=== PATIENT | male | born 1995 | race Caucasian/White ===

== ENCOUNTER 2025-04-21 23:12 | Emergency (ER) | payer OTHER, SELFPAY ==
[2025-04-21 23:13] VITALS: BP 148/88; PULSE 82; RESP 16; TEMP 36.6; O2SAT 100; BMI 20.6
--- NOTE | 2025-04-21 23:35 | EKG12_ITS ---
Test Reason : CP Blood Pressure : */* mmHG Vent. Rate : 85 BPM Atrial Rate : 85 BPM P-R Int : 148 ms QRS Dur : 106 ms QT Int : 364 ms P-R-T Axes : 52 -2 39 degrees QTcB Int : 433 ms Normal sinus rhythm Possible Left atrial enlargement Incomplete right bundle branch block Borderline ECG Confirmed by ADRI FLORES, QUINTEN ([id number]), publishing editor BRENNON BENJAMIN ([id number]) on 04/22/2025 1:03:56 PM Referred By: BB Confirmed By: QUINTEN RUSH MD
--- NOTE | 2025-04-21 23:36 | EDS_ITS ---
HPI History of Present Illness Chief Complaint: Chest Pain Informant: patient and parent Narrative Narrative: Healthy 29-year-old [employer] male brought by his dad for left-sided chest discomfort. He states it has been intermittent for the past week but for the past 2 days it has been more constant and more severe. It is still on the left side. Its mostly dull, but if he lies down the pain is significantly worse and sharp to the point where he cannot lay down. If he bends over he makes it worse as well. He has had some shortness of breath at times. No leg pain or swelling. No syncope or near syncope. No palpitations or diaphoresis or radiation of the pain into the arm, neck, jaw. PFSH PFSH Medical History no medical history no medical history Home Medications ?Medication ?Instructions ?Recorded ?Last Taken ?Type NK 04/21/25 Unknown History Allergy/AdvReac Type Severity Reaction Status Date / Time No Known Allergies Allergy Verified 04/21/25 23:13 Family History other other (hypertrophic and restrictive cardiomyopathies in fam members) Surgical History no surgical history Social History Smoking Status: Never smoker alcohol intake: never ROS ROS ED Constitutional Constitutional ED: Denies chills or fever(s) Eyes Eyes: Denies change in vision or diplopia ENT ENT ED: Denies rhinorrhea or sore throat Cardiovascular Cardiovascular: Reports as per HPI and chest pain; Denies leg edema, orthopnea, palpitations or syncope Respiratory/Chest Respiratory/Chest: Reports dyspnea; Denies cough or orthopnea Gastrointestinal Gastrointestinal: Denies abdominal pain, diarrhea, nausea or vomiting Genitourinary Genitourinary ED: Denies dysuria or hematuria Musculoskeletal Musculoskeletal: Denies back pain or neck pain Integumentary Denies abscess or rash Neurologic Neurologic: Denies headache(s), paresthesias or weakness Psychiatric Psychiatric: Denies anxiety or suicidal thoughts EXAM Physical Exam Const Vital Signs: 04/21/25 23:13 04/21/25 23:19 04/21/25 23:41 Temperature 98 F Temperature Source Oral Pulse Rate 82 Respiratory Rate 16 Respiratory Effort Normal Non-Labored Blood Pressure 148/88 H Blood Pressure Mean 108 Pulse Ox 100 Oxygen Delivery Method Room Air Room Air 04/22/25 00:13 04/22/25 01:00 04/22/25 02:00 Temperature Temperature Source Pulse Rate 80 58 L 52 L Respiratory Rate 18 16 11 L Respiratory Effort Blood Pressure 126/73 H 121/74 H 116/68 Blood Pressure Mean 90 89 84 Pulse Ox 98 98 98 Oxygen Delivery Method Room Air Room Air Room Air 04/22/25 02:08 Temperature 98 F Temperature Source Pulse Rate 53 L Respiratory Rate 10 L Respiratory Effort Blood Pressure 116/68 Blood Pressure Mean 84 Pulse Ox 97 Oxygen Delivery Method Positive well nourished and well developed General Appearance ED: well developed and NAD HEENT Reports moist mucous membranes normocephalic and atraumatic Eyes PERRL and EOMs intact bilaterally Neck full ROM, supple and no JVD Chest Wall inspection of chest normal and palpation of chest normal Chest: Negative for tenderness Resp normal respiratory effort and clear to auscultation bilaterally Cardio regular rate, regular rhythm and no murmurs Rate: Negative for tachycardic Peripheral Pulses: pulses 2+ throughout GI non-tender and non-distended Auscultation: normoactive bowel sounds Palpation: soft Back/Spine no CVA tenderness General Back: other FROM Extremity normal to inspection Extremity Narrative: No calf tenderness bilaterally General Extremety ED: Negative for edema, pulses abnormal or tenderness General Extremity: Negative for edema or pulses abnormal Neuro oriented x3, CN's II-XII intact bilaterally and no sensory deficits noted Sensorium / Orientation: awake and alert Motor Exam: strength 5/5 throughout Skin no rashes or lesions noted and no wounds MDM MDM MDM Narrative Medical decision making narrative: Broad differential here, and acute vascular event such as unstable angina/ACS unlikely given his age and health, but pericarditis, myocarditis in the differential as his pneumothorax, less likely pneumonia given no cough, PE although he has no specific risk factors or signs or symptoms of a DVT, pleurisy, esophageal etiology is all in the differential. His EKG shows an RSR prime but is otherwise unremarkable. Father was concerned he has a family history of cardiomyopathies, I do not see any evidence or suspicion for LVH on the EKG, nor are there ST segment deflections or signs of acute injury or EKG signs of pericarditis at this time. Chest x-ray 2 views of my interpretation normal, showing no pneumonia or pneumothorax or signs of pulmonary edema. His blood work including troponin and proBNP all returned normal. His D-dimer is normal as well ruling out PE here. Under the circumstances my suspicion is that this could be pleurisy versus esophageal etiologies. We gave him some Toradol while we were performing the workup. He said it helped afterwards. At this time I am going to recommend he take ibuprofen as needed and follow-up with his doctor as an outpatient they are comfortable with that plan. Lab Data Attestation: I reviewed the patient's lab results. Labs: Laboratory Results - last 24 hr 04/21/25 04/22/25 23:20 01:21 WBC 6.1 RBC 4.89 Hgb 15.0 Hct 43.1 MCV 88.1 MCH 30.7 MCHC 34.8 RDW Std Deviation 38.5 RDW Coeff of Minesh 11.9 Plt Count 195 MPV 9.5 Immature Gran % (Auto) 0.200 Neut % (Auto) 46.4 L Lymph % (Auto) 42.3 H [place] % (Auto) 7.5 Eos % (Auto) 2.6 Baso % (Auto) 1.0 Absolute Neuts (auto) 2.9 Absolute Lymphs (auto) 2.59 Nucleated RBC % 0 D-Dimer Quant (PE/DVT) < 0.27 L Sodium 139 Potassium 3.6 Chloride 102 Carbon Dioxide 23.3 Anion Gap 14 BUN 18 Creatinine 0.98 Estim Creat Clear Calc 94.76 Est GFR (MDRD) Non-Af 108 BUN/Creatinine Ratio 18.7 Glucose 95 Calcium 9.7 Troponin T High Sens < 6 Troponin T Hi Sens 2 Hr < 6 NT pro BNP II < 36 Radiography Diagnostic Testing: Clinical Impression(s) from Imaging Studies Chest X-Ray 04/21/25 23:46 IMPRESSION: No acute chest findings. Reading Location: [place] [id number] Rhythm Strip Rhythm Strip: Sinus Rhythm Rate: 92 Ectopy: None EKG Initial EKG: Attestation: I personally reviewed and interpreted this EKG as follows: Interpretation: Sinus Rhythm and No Acute Injury Pattern Comments: RSR' V1-2. Normal axis and intervals. Otherwise normal EKG. Prior EKG tracings: not available for review Prior: No Prior Discharge Plan Triage Chief Complaint: Chest Pain ED Provider: Blade Elise Dx/Rx/DC Orders Clinical Impression: Pleurisy Instructions: ED Pleurisy Prescriptions: No Action NK Primary Care Provider: Evangelista Silva Referrals: Evangelista Silva, [Primary Care Provider] - 3-5 Days if not improving Print Language: Persian Disposition Disposition: Home, Self Care
--- OUTSIDE RECORDS SUMMARY | 2025-04-21 23:42 | XMS RPT_ITS | CCD ---
Author Organization [facility] Care Team Providers Care Desulphurizer Operator Name Role Phone Unavailable Unavailable Evangelista Silva Unavailable Dr. Kamari Ortega Referring Katina vailable Evangelista Silva Primary Care Unavailable Robert, Dr. Kamari Pierson Admitting Katina vailable Robert, Dr. Kamari Pierson Attending Katina vailable Evangelista Silva Primary Care Unavailable Carmen, Dr. Lali Lee Attending Unava ilable Evangelista Silva Primary Care Unavailable Carmen, Dr. Lali Lee Attending Unava ilable Robert, Dr. Kamari Pierson Referring Katina vailable Evangelista Silva Primary Care Unavailable Robert, Dr. Kamari Pierson Attending Katina vailable Carmen Barton MD, Lali Unavailable [phone] KAMARI ORTEGA Attending Unavailable Blade Elise Attending Unavailable Evagnelista Silva Primary Care Unavailable Allergies Allergy Classification Reported Allergen(s) Allergy Type Date of Onset Reaction(s) Facility (10 sources) bee pollen Allergy to substance (finding) [facility] [address] Work Phone: (10 sources) house dust Allergy to substance (finding) [facility] [address] Work Phone: (2 sources) Aspirin; Translations: [ASPIRIN] Drug Allergy 2 Bleeding [facility] (2 sources) Bee pollen; Translations: [BEE POLLEN] Drug Allergy 5 Itching [facility] Work Phone: (2 sources) house dust allergenic extract; Translations: [HOUSE DUST] Drug Allergy 5 Itching [facility] Work Phone: (2 sources) Ibuprofen; Translations: [IBUPROFEN] Drug Allergy 6 Other [facility] Work Phone: (2 sources) Non-steroidal anti-inflammator y agent; Translations: [NSAIDS (NON-STEROIDAL ANTI-INFLAMMATOR Y DRUG)] Drug Intolerance 2 Bleeding [facility] Work Phone: Medications Current Medications Medication Drug Class(es) Dates Sig (Normalized) Sig (Original) acetaminophen 325 mg oral tablet (1 source) Start: 06-12-2022 take 1 tablet by mouth every eight hours acetaminophen (Tylenol) 325 mg tablet Take 1 tablet (325 mg) by mouth every 8 hours. 06/12/2022 Active Docosahexaenoate (1 source) take 3 capsules by mouth once daily DOCOSAHEXAENOIC ACID ORAL Take 3 capsules by mouth once daily. Active nonacog marco 1 unt injection (1 source) Human Blood Coagulation Factor coagulation factor IX, recomb, (BeneFIX) 3,000 unit injection Indications: hemophilia B Infuse 100 Units/kg into a venous catheter if needed (Every 12-24 hours as needed to treat or prevent bleeding). Benefix 6000 units +/- 10% slow IV push as needed every 12-24 hours to treat or prevent bleeds. Received through [employer] hemophilia [facility]. 3 doses refill x 6 Active Completed/Discontinued Medications Medication Drug Class(es) Dates Sig (Normalized) Sig (Original) No Reported Medications (9 sources) No Reported Medi cations Quantity: 0 Refills: 0 Ordered: 12-May-2022 DO Active Problems Active Problems Problem Classification Problem Date Documented Da te Episodic/Chronic Cancer; other and unspecified primary (2 sources) History of pleomorphic adenoma of salivary gland; Translations: [Personal history of other benign neoplasm] Onset: 10-21-2024 10-08-2024 Episodic Coagulation and hemorrhagic disorders (4 sources) Hereditary factor VIII deficiency; 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] Onset: 06-12-2022 10-08-2024 Chronic Other skin disorders (10 sources) Mass of neck; Translations: [Swelling, mass, or lump in head and neck] Episodic Other skin disorders (2 sources) Localized swelling of head; Translations: [Localized swelling, mass and lump, head] Onset: 10-21-2024 10-08-2024 Episodic Past or Other Problems Problem Classification Problem Date Documented Da te Episodic/Chronic Diseases of mouth; excluding dental (11 sources) Mass of parotid gland; Translations: [Other specified diseases of the salivary glands] Onset: 06-11-2022 Episodic Other and unspecified benign neoplasm (2 sources) Benign neoplasm of parotid gland; Translations: [Benign neoplasm of parotid gland] Onset: 06-12-2022 Episodic Results Test Name Value Interpretation Reference Range Facility Established Visit (Otolaryng ology)on 06-21-2022 Established Visit (Otolaryngology) Diagnoses/Problems Non-smoker (V49.89) (Z78.9) Parotid mass (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 SADIE OSMAN, is a 26 yr old male here for first postop s/p right parotidectomy for pleomorphic adenoma. Path pending. 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 He is doing well. He will follow up with me in 2-3 weeks. Reassurance provided. Education provided regarding incision care including massage, moisturization and Vit E as well as the need for aggressive sunblock/sun protection for the first year. Chief Complaint post op visit History of Present IllnessMrJuan José OSMAN, is a 26 year old male here for his first postop s/p right parotidectomy 06/11/22. Discharged 06/12/22. Called 06/14/22 when a stitch came out and he had some bleeding. This stopped after factor and he did not require hospitalization. He has done well. Here alone today. He is doing well. He is getting bored at home. Path remains pending. History: Dx: Right parotid pleomorphic adenoma Dx2: Hemophilia Long standing history several yrs of right parotid mass, previous FNA benign (no records available) 05/12/22: CT neck w/contrast +heterogeneous ill-defined mass in the right parotid which is 3.5cm in size. 05/19/22: FNA Rt parotid +pleomorphic adenoma 06/11/22: S/p Right parotidectomy PShx: He had impacted tooth removed as a child and nasal bone fx in the past. 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 No acute distress. Communication: Normal communication, normal voice quality. No hoarseness, stridor or stertor. Psychiatric: Oriented to person, place and time. Normal mood and affect. Neurologic: Cranial nerves II-XII grossly intact and symmetric bilaterally - Right FN intact except for mild right marginal mandibular nerve weakness Head and Face: Head: Atraumatic with no masses, lesions or scarring. Face/Salivary glands: S/p right parotidectomy TMJ: Normal, no trismus. Eyes: Conjunctiva not edematous or erythematous, +nystagmus Ears: External inspection of ears with no deformity, scars or masses. Nose: External inspection of nose: No nasal lesions, lacerations or scars Oral Cavity/Mouth MMM Neck: Parotid incision C/D/I, steristrips removed and cleaned. No bleeding Cardiovascular: Examination of peripheral vascular system shows no clubbing or cyanosis. Respiratory: No respiratory distress increased work of breathing. Inspection of the chest with symmetric chest expansion and normal respiratory effort. Skin: +sunburn, very pale skin Results/Data Path pending 'Scores and Scales' Signatures Electronically signed by : Kamari Ortega MD; Jun 26 2022 10:14AM EST (Author) Normal Touchworks CBCon 06-13-2022 HCT Canceled Normal [facility] Comment on above: Order Comment: TEST CBC WAS CANCELLED, 06/13/2022 00:52 Performed By: #### C BC ####[id number] [place] [address] HGB Canceled Normal [facility] Comment on above: Order Comment: TEST CBC WAS CANCELLED, 06/13/2022 00:52 Performed By: #### C BC ####[id number] [place] [address] MCHC Canceled Normal [facility] Comment on above: Order Comment: TEST CBC WAS CANCELLED, 06/13/2022 00:52 Performed By: #### C BC ####[id number] [place] [address] MCV Canceled Normal [facility] Comment on above: Order Comment: TEST CBC WAS CANCELLED, 06/13/2022 00:52 Performed By: #### C BC ####[id number] [place] [address] NUCLEATED RBC Canceled Normal [facility] Comment on above: Order Comment: TEST CBC WAS CANCELLED, 06/13/2022 00:52 Performed By: #### C BC ####[id number] [place] [address] PLT Canceled Normal [facility] Comment on above: Order Comment: TEST CBC WAS CANCELLED, 06/13/2022 00:52 Performed By: #### C BC ####[id number] [place] [address] RBC Canceled Normal [facility] Comment on above: Order Comment: TEST CBC WAS CANCELLED, 06/13/2022 00:52 Performed By: #### C BC ####[id number] [place] [address] RDW-CV Canceled Normal [facility] Comment on above: Order Comment: TEST CBC WAS CANCELLED, 06/13/2022 00:52 Performed By: #### C BC ####[id number] [place] [address] WBC Canceled Normal [facility] Comment on above: Order Comment: TEST CBC WAS CANCELLED, 06/13/2022 00:52 Performed By: #### C BC ####[id number] [place] [address] CBCon 06-12-2022 HCT Canceled Normal [facility] Comment on above: Order Comment: TEST CBC WAS CANCELLED, 06/12/2022 20:16 NO SPECIMEN RECEIVED IN LAB. Performed By: #### C BC #### [facility] [address] [place] [address] HGB Canceled Normal [facility] Comment on above: Order Comment: TEST CBC WAS CANCELLED, 06/12/2022 20:16 NO SPECIMEN RECEIVED IN LAB. Performed By: #### C BC #### [facility] [address] [place] [address] MCHC Canceled Normal [facility] Comment on above: Order Comment: TEST CBC WAS CANCELLED, 06/12/2022 20:16 NO SPECIMEN RECEIVED IN LAB. Performed By: #### C BC #### [facility] [address] [place] [address] MCV Canceled Normal [facility] Comment on above: Order Comment: TEST CBC WAS CANCELLED, 06/12/2022 20:16 NO SPECIMEN RECEIVED IN LAB. Performed By: #### C BC #### [facility] [address] [place] [address] NUCLEATED RBC Canceled Normal [facility] Comment on above: Order Comment: TEST CBC WAS CANCELLED, 06/12/2022 20:16 NO SPECIMEN RECEIVED IN LAB. Performed By: #### C BC #### [facility] [address] [place] [address] PLT Canceled Normal [facility] Comment on above: Order Comment: TEST CBC WAS CANCELLED, 06/12/2022 20:16 NO SPECIMEN RECEIVED IN LAB. Performed By: #### C BC #### [facility] [address] [place] [address] RBC Canceled Normal [facility] Comment on above: Order Comment: TEST CBC WAS CANCELLED, 06/12/2022 20:16 NO SPECIMEN RECEIVED IN LAB. Performed By: #### C BC #### [facility] [address] [place] [address] RDW-CV Canceled Normal [facility] Comment on above: Order Comment: TEST CBC WAS CANCELLED, 06/12/2022 20:16 NO SPECIMEN RECEIVED IN LAB. Performed By: #### C BC #### [facility] [address] [place] [address] WBC Canceled Normal [facility] Comment on above: Order Comment: TEST CBC WAS CANCELLED, 06/12/2022 20:16 NO SPECIMEN RECEIVED IN LAB. Performed By: #### C BC #### [facility] [address] [place] [address] Erythrocyte distribution width (RBC) [Ratio] 12.0 % Normal 11.5 - 14.5 [facility] Comment on above: Performed By: #### C BC #### [facility] [address] [place] [address] Hematocrit (Bld) [Volume fraction] 44.6 % Normal 41.0 - 52.0 [facility] Comment on above: Performed By: #### C BC #### [facility] [address] [place] [address] Hemoglobin (Bld) [Mass/Vol] 15.4 g/dL Normal 13.5 - 17.5 [facility] Comment on above: Performed By: #### C BC #### [facility] [address] [place] [address] MCHC (RBC) [Mass/Vol] 34.5 g/dL Normal 32.0 - 36.0 [facility] Comment on above: Performed By: #### C BC #### [facility] [address] [place] [address] MCV (RBC) [Entitic vol] 88 fL Normal 80 - 100 [facility] Comment on above: Performed By: #### C BC #### [facility] [address] [place] [address] NUCLEATED RBC 0.0 /100 WBC Normal 0.0-0.0 [facility] Comment on above: Performed By: #### C BC #### [facility] [address] [place] [address] Platelets (Bld) [#/Vol] 217 10*3/uL Normal 150 - 450 [facility] Comment on above: Performed By: #### C BC #### [facility] [address] [place] [address] RBC 5.06 x10E12/L Normal 4.50 - 5.90 [facility] Comment on above: Performed By: #### C BC #### [facility] [address] [place] [address] WBC (Bld) [#/Vol] 9.0 10*3/uL Normal 4.4 - 11.3 [facility] [place] Comment on above: Performed By: #### C BC #### [facility] [address] 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 Right parotidectomy with facial nerve dissection;2. Intraoperative nerve monitoring Hospital Providers: Provider RoleProvider Name Kamari Desai DNAR: Code Status at Discharge: Full Code Activity: activity with assistance. May shower. 48 hours after surgery. May not return to school/work until follow-up visit with Dr Ortega Instructions: May not drive while taking narcotics. No pushing, pulling, or lifting objects greater than 20 pounds until follow-up visit. Diet: Dietregular Call Provider If (Homegoing Patients): Breathing harder than normal or having retractions. Fever of 100.4 F (38 C) or higher. Chills. Drinking less than normal. Not being able to go 4-6 hours between albuterol treatments. Urinating less than normal, over 1 day. Acting very sleepy and difficult to awaken. Vomiting (throwing up) and not able to eat or drink for 12 hours. 3 or more loose, watery bowel movements in 24 hours (diarrhea). Any new concerning symptoms. Increased swelling at surgical site. Otolaryngology: Incision Care: You have small paper tapes over small surgery incisions. These tapes may get wet in shower, pat dry. The strips may become loose and fall off on their own, any strips that remain will be removed at your follow up visit. Provider FINAL REVIEW of Orders: Final Review: Final Review of Medication Reconciliation and Orders Completedby Physician Reviewing ProviderAlcides Velasquez MD (Resident) at 12-Jun-2022 10:23:12 Appointments: Follow-Up Appointment 01: Physician/Dept/Nori Ortega - ENT Reason for Referralpost op visit Scheduled Date/[id number] 16:00 [facility] [address] [place] [address] Phone [phone] Electronic Signatures: Alcides Velasquez ( (Resident)) (Signed 12-Jun-2022 10:23) Authored: Discharge Orders, Otolaryngology, Provider FINAL REVIEW of Orders, Appointments, Gold Form - Ichthyologist Summary Last Updated: 12-Jun-2022 10:23 by Alcides Velasquez ( (Resident)) Normal [facility] Laboratory - Hematology and Cell countson 06-12-2022 Erythrocyte distribution width (RBC) [Ratio] 12.0 % See Below -Otolaryn ology-Admin [employer] Work Phone: Comment on above: Reference Range: 11. 5 - 14.5 Hematocrit (Bld) [Volume fraction] 44.6 % See Below -[facility] ology-Admin [employer] Work Phone: Comment on above: Reference Range: 41. 0 - 52.0 Hemoglobin (Bld) [Mass/Vol] 15.4 g/dL See Below MG-Otolaryng ology-Admin [place] [address] Work Phone: Comment on above: Reference Range: 13. 5 - 17.5 MCHC (RBC) [Mass/Vol] 34.5 g/dL See Below MG-Otolaryng ologyAdmin [place] [address] Work Phone: Comment on above: Reference Range: 32. 0 - 36.0 MCV (RBC) [Entitic vol] 88 fL 80 - 100 MG-Otolaryng ology-[place] [address] Work Phone: [phone] Platelets (Bld) [#/Vol] 217 10*3/uL 150 - 450 [facility]-Otolaryng ology-[place] [address] Work Phone: [phone] RBC (Bld) [#/Vol] 5.06 {x10E12/L} See Below [place] [address] Work Phone: Comment on above: Reference Range: 4.5 0 - 5.90 WBC (Bld) [#/Vol] 9.0 10*3/uL 4.4 - 11.3 MG-Shar laryng ology-[place] [address] Work Phone: MAGNESIUMon 06-12-2022 Magnesium [Mass/Vol] 1.95 mg/dL Normal 1.60 - 2.40 [facility] Comment on above: Performed By: #### M G ####[id number] [place] [address] Magnesium, Serumon Magnesium [Mass/Vol] 1.95 mg/dL See Below [place] [address] Work Phone: Comment on above: Reference Range: 1.6 0 - 2.40 No Panel Informationon 06-12 0.0 {/100_WBC} 0.0-0.0 MG-Otolary ology-[place] [address] Work Phone: Order Reconciliationon 06-12 Order Reconciliation Page 1 Discharge Reconciliation Document Reconciliation Type: Discharge requested on behalf of Ondina Winkler (Resident) done by Ondina Winkler ( (Resident)) Discharge - Reconciliation: 12-Jun-2022 10:02 by: Ondina Winkler ( (Resident)) Home Medications EnteredHOME MEDICATIONS AT DISCHARGE DateReconciliation Comment/ Additional Information BeneFIX intravenous kit 6500 international unit(s) intravenous prn, As Needed 07-Dec-2021 00:00 BeneFIX intravenous kit 6500 international unit(s) intravenous prn, As Needed 07-Dec-2021 00:00 BeneFIX intravenous kit is continued as BeneFIX intravenous kit Current OrdersDateHOME MEDICATIONS AT DISCHARGE DateReconciliation Comment/ Additional Information Acetaminophen Tablet (TYLENOL)DOSE = 975 mg Oral Every 8 Hours 11-Jun-2022 12:40 acetaminophen 325 mg oral tablet 3 tab(s) orally every 8 hours 12-Jun-2022 10:01 Acetaminophen is continued as acetaminophen 325 mg oral tablet ceFAZolin 1 gram IVPB/ Premixed Soln 50 mL (ANCEF)Every 8 HoursRecommended Infusion Time: 30 minute(s)Stop After 3 DosesClinician Notes: If there is a shortage of Unasyn 11-Jun-2022 12:40 ceFAZolin 1 gram IVPB/ Premixed Soln 50 mL is not required Docusate Capsule (COLACE)DOSE = 100 mg Oral 2 Times a Day 11-Jun-2022 12:40 Docusate is not required Factor IX Recombinant (BENEFIX) IVPB in Sterile Water 0.1 mLDOSE = 6,500 International Unit(s OnceRecommended Infusion Time: 20 minute(s)Stop After 1 DosesClinician Notes: PATIENT'S OWN MED (ok to use patient home medication.TO BE GIVEN AT NO 12-Jun-2022 09:54 Factor IX Recombinant (BENEFIX) IVPB is not required Heparin SubCutaneous DOSE = 5,000 unit(s) SubCutaneous Every 8 HoursNotes from Pharmacy: Note Concentration Prior to Administration 11-Jun-2022 12:40 Heparin SubCutaneous is not required Non-Formulary Medication Benefix (Coagulation Factor IX) InjectableDose = 6500 unit(s) IntraVenous Push OncePATIENTS OWN MEDS 11-Jun-2022 11:48 Non-Formulary Medication is not required Ondansetron Injectable (ZOFRAN)DOSE = 4 mg IntraVenous Push Every 6 Hours, PRN Nausea & Vomiting 11-Jun-2022 12:40 Ondansetron Injectable is not required Sennosides Tablet (SENOKOT)DOSE = 1 tablet(s) PEG Tube Daily 11-Jun-2022 12:40 Sennosides is not required Home Medications Added During Discharge Reconciliation traMADol 50 mg oral tablet 1 tab(s) orally every 6 hours, As Needed , G89.18 postop pain All Active Home Medications at time of Discharge Reconciliation: 12-Jun-2022 10:02 acetaminophen 325 mg oral tablet 3 tab(s) orally every 8 hours BeneFIX intravenous kit 6500 international unit(s) intravenous prn, As Needed traMADol 50 mg oral tablet 1 tab(s) orally every 6 hours, As Needed , G89.18 postop pain Normal [facility] RENAL FUNCTION PANELon 06-12 Albumin [Mass/Vol] 4.1 g/dL Normal 3.4 - 5.0 [facility] [place], [facility] Comment on above: Performed By: #### R ENAL #### [facility] [address] [place] [address] Anion gap [Moles/Vol] 15 mmol/L Normal 10 - 20 [facility] Comment on above: Performed By: #### R ENAL #### [facility] [address] [place] [address] Calcium [Mass/Vol] 9.3 mg/dL Normal 8.6 - 10.6 [facility] [place] Comment on above: Performed By: #### R ENAL #### [facility] [address] [place] [address] Chloride [Moles/Vol] 102 mmol/L Normal 98 - 107 [facility] Comment on above: Performed By: #### R ENAL #### [facility] [address] [place] [address] Creatinine [Mass/Vol] 0.91 mg/dL Normal 0.50 - 1.30 [facility] Comment on above: Performed By: #### R ENAL #### [facility] [address] [place] [address] eGFR MALE >90 Normal >90 [facility] Comment on above: Result Comment: CALC ULATIONS OF ESTIMATED GFR ARE PERFORMED USING THE 2020 CKD-EPI STUDY REFIT EQUATION WITHOUT THE RACE VARIABLE FOR THE IDMS-TRACEABLE CREATININE METHODS. https://jasn.asnjournals.org/content//ASN.67471768 88 Performed By: #### R ENAL #### [facility] [address] [place] [address] Glucose [Mass/Vol] 78 mg/dL Normal 74 - 99 [facility] [place] Comment on above: Performed By: #### R ENAL #### [facility] [address] [place] [address] HCO3 (Bld) [Moles/Vol] 26 mmol/L Normal 21 - 32 [facility] Comment on above: Performed By: #### R ENAL #### [facility] [address] [place] [address] Phosphate [Mass/Vol] 3.0 mg/dL Normal 2.5 - 4.9 [facility] Comment on above: Result Comment: The performance characteristics of phosphorus testing in heparinized plasma have been validated by the individual laboratory site where testing is performed. Testing on heparinized plasma is not approved by the FDA; however, such approval is not necessary. Performed By: #### R ENAL #### [facility] [address] [place] [address] Potassium [Moles/Vol] 3.7 mmol/L Normal 3.5 - 5.3 [facility] Comment on above: Performed By: #### R ENAL #### [facility] [address] [place] [address] Sodium [Moles/Vol] 139 mmol/L Normal 136 - 145 [facility] [place] Comment on above: Performed By: #### R ENAL #### [facility] [address] [place] [address] Urea nitrogen [Mass/Vol] 15 mg/dL Normal 6 - 23 [facility] Comment on above: Performed By: #### R ENAL #### [facility] [address] [place] [address] Renal Function Panelon 06-12 Albumin BCP dye [Mass/Vol] 4.1 g/dL 3.4 - 5.0 MG-Otolaryng ology-Admin [place] [address] Work Phone: [phone] Anion gap [Moles/Vol] 15 mmol/L 10 - 20 MG-Otolaryng ology-Admin [place] [address] Work Phone: [phone] Calcium [Mass/Vol] 9.3 mg/dL 8.6 - 10.6 [facility] laryng ology-Admin [place] [address] Work Phone: [phone] Chloride [Moles/Vol] 102 mmol/L 98 - 107 [facility] [place] [address] Work Phone: [phone] CO2 [Moles/Vol] 26 mmol/L 21 - 32 [facility]-Ot[facility] yng ology-Admin [place] [address] Work Phone: [phone] Creatinine [Mass/Vol] 0.91 mg/dL See Below [facility] [place] [address] Work Phone: [phone] Comment on above: Reference Range: 0.5 0 - 1.30 Glucose [Mass/Vol] 78 mg/dL 74 - 99 [facility] l[facility] olog[facility]-Admin [place] [address] Work Phone: [phone] Phosphate [Mass/Vol] 3.0 mg/dL 2.5 - 4.9 [facility]-Admin [place] [address] Work Phone: [phone] Comment on above: The performance mariela acteristics of phosphorus testing in heparinized plasma have been validated by the individual laboratory site where testing is performed. Testing on heparinized plasma is not approved by the FDA; however, such approval is not necessary. Potassium [Moles/Vol] 3.7 mmol/L 3.5 - 5.3 [facility] [place] [address] Work Phone: Sodium [Moles/Vol] 139 mmol/L 136 - 145 [facility] [place] laryng olog[facility]-Admin [place] [address] Work Phone: Urea nitrogen [Mass/Vol] 15 mg/dL 6 - 23 [facility]Admin [place] [address] Work Phone: [phone] Renal Function Panel >90 >90 [facility]-Admin [place] [address] Work Phone: [phone] Comment on above: CALCULATIONS OF SUE MATED GFR ARE PERFORMED USING THE 2020 CKD-EPI STUDY REFIT EQUATION WITHOUT THE RACE VARIABLE FOR THE IDMS-TRACEABLE CREATININE METHODS.https://jasn.asnjournals.org/content/early//ASN. 4728441397 ABO/RH GROUP TESTon 06-11-20 ABO TYPE A Normal [facility] Comment on above: Performed By: #### V ERAB #### [facility] [address] [place] [id number] RH TYPE Positive Normal [facility] Comment on above: Performed By: #### V ERAB #### [facility] [address] [place] [id number] Admission Risk Screen - Adul ton 06-11-2022 Admission Risk Screen - Adult Allergies: Allergies: No Known Allergies: Patient Verification: New W ID Band Applied in my Departmentyes Patient Identity Verified Bypatient; parent/legal guardian ID Band FULL Name, include Middle, spelling matches patient's ID used for verificationyes ID Band Matches Patient ID used for Verficationyes ID Band MRN Matches EMR MRNyes Visitor Restriction: Coronavirus Visitor Restriction: Reasonable restrictions to in-person visitors will be observed due to current coronavirus pandemic. Travel History: COVID-19 Screening Completedno exposure or symptoms(1) Travel or Exposure Past 30 DaysNO travel to International locations in the past 30 days Ebola AlertFor Ebola-like Symptoms: Isolate Patient and Notify Provider/Polymerization Helper For Contact: Notify Provider/Polymerization Helper Advance Directive: Advance Directive/DNRno Advance Directive Information Givenpatient/family declined Lopez Fall Screen: History of falling (immediate or previous)no (0) Secondary Diagnosisyes (15) Intravenous Therapy/ Heparin/Saline Lockyes (20) Gait/Transferringnormal/be drest/wheelchair (0) Ambulatory Aidsnone/bedrest/nurse assist (0) Mental Statusoriented to own ability (0) Score: Low risk (<25). Moderate risk (25-44). High risk (>44).35 Lopez InterventionsMODERATE INTERVENTIONS: *Low Interventions Plus: * falls risk band/sticker applied to patient, *yellow non-skid footwear, *instruct to call for assistance before getting out of bed, *bed/chair/bedside commode/toilet alarms, *sensory devices/ambulatory aides available and in reach, *medications reviewed for potential side effects and care planning. Family Violence Screen: Are you or have you been threatened or abused physically, emotionally, or sexually by anyoneyes Do you feel UNSAFE going back to the place where you are livingno Clinical assessment: Are there any apparent signs of injuries/behaviors that could be related to abuse/neglectno Social Service Consult for abuse/neglect needed this visitno Functional Screen: Functional Screen: In the recent/past 2-4 weeks, patient or family have noticedno issues that require a speech/language consult at this time AM-PAC- Basic Mobility/Daily Activity: Patient baseline bedboundno Learning Assessment (Patient): Patient is Able to be Assessed for Learningyes Factors Influencing Readiness to Learnacuteness of illness; anxiety Factors that Impact Ability to Learnnone Devices/Methods Used to Communicatenone Learning Preferencesaudio Cultural Considerationsnone Developmental Considerationsnone Rastafari Considerationsnone Learning Assessment (Other Learner): Other learner availableyes... Learnerfather Factors Influencing Readiness to Learnacuteness of illness, anxiety Factors that Impact Ability to Learnnone Devices/Methods Used to Communicatenone Learning Preferencesaudio Cultural Considerationsnone Developmental Considerationsnone Rastafari Considerationsnone Depression Screen: During the past month, have you often been bothered by feeling down, depressed or hopelessno During the past month, have you often had little interest or pleasure in doing thingsno Have you had any thoughts of harming anyone elseno [place] Suicide: Risk Screen Not Applicable/Able to Answerable to be screened In the Past Month: Have you wished you were or could go to sleep and not wake upno(1) In the Past Month: Have you had any actual thoughts of killing yourself no(1) Lifetime: Have you ever done, started to do, or prepared to do anything to end your lifeno(1) [place] Suicide Risknegative Adult Nutrition Screen: Have you recently lost weight without tryingno Have you been eating poorly because of a decreased appetiteno Malnutrition Screening Tool Score0 Malnutrition Screening Tool RiskMST = 0 or 1 Not at risk. Eating well with little or no weight loss Nutrition Consult needed this visitno Can Patient Participate in Room Serviceyes Patient requires Paper Dishes/Plastic Utensilsno Pain Screen: Pain Scalenumerical 0-10 Pain Scale Educationteaching provided Current Pain Level2 = Mild Acceptable Pain Level0 = None Expression of Pain (nonverbal)none Chronic Painno Spiritual Screen: Are there any cultural, spiritual, zoroastrian practices/values/needs that are important for us to knowno CAGE: Is this an injured patient at a Trauma Center ([facility]/Jonny/Chris/Kemi/Dariana Powers/Vern): no Vaccinations: Vaccination - Influenza Vaccination Screen: Is it flu season (between and December 24)Yes Screening for identified contraindications to influenza vaccination patient/caregiver refusal Vaccination - Pneumonia Vaccination Screen: Patient has received a previous pneumonia vaccine:no/unknown... Immunocompetent persons with underlying chronic conditions or reside in terminal gauger care facilitiesn (more content not included)... Normal [facility] Consult-Hematologyon 022 Consult-Hematology Service: Service: Hematology Consult: Consult requested by (Attending Name): Dr. 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 He took his Factor this morning. He will be given his Factor twelve hours after the surgery. Heme history: He follows Dr. Morales in the clinic. He had jaw surgery at 5 years old as well for benign cyst on left lower jaw, required hospitalization a few days after surgery for delayed bleeding. As a young boy he had three broken noses and he had surgery on his nose at 13 and 14 years old did not require any hospitalization at that time. He has a history of having a broken arm in the 8th grade when he fell off of a scooter, he was not hospitalized at that time was treated at home. He has had no spontaneous bleeding and has no history of intramuscular or joint bleeding. He takes Benefix on demand. Dosed by dad. Had one episode of bleeding this past year when he injured his thigh at work, accidently hit himself in the leg with a sledge hammer. He took 2 doses of Benefix and it resolved. No other bleeding issues. He sees the dentist regularly. He denies any other bleeding, no hematuria no melena or BRBPR. PMHx: hemophilia, allergy PSHx: as above Social hx: Denies smoking. Works as a [employer]. Wears a hard hat. Carries a medical alert card with his diagnosis. 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 He took his Factor this morning. He will be given his Factor twelve hours after the surgery. Recs: Will follow him while inpatient. Patient will receive factor IX every 12 hour for three doses starting first dose pre-op followed by once daily at 80-90 units/kg Will monitor him while inpatient for bleeding. Patient has adequate doses of factor at home for daily infusion for at least 10-14 days post op and Hemopilia team will follow up on his progress Lamberto Cain MD Hematology/Oncology, PGY-4 DocHalo Attestation: Note Completion: I am a: Resident/Fellow Attending AttestationI saw and evaluated the patient. I personally obtained the sullivan and critical portions of the history and physical exam or was physically present for sullivan and critical portions performed by the resident/fellow. I reviewed the resident/fellows documentation and discussed the patient with the resident/fellow. I agree with the resident/fellows medical decision making as documented in the note. I personally evaluated the patient [id number] Electronic Signatures: LAMBERTO CAIN (Fellow)) (Signed 11-Jun-2022 14:13) Authored: Service, History of Present Illness, Allergies, Assessment/Recommendations Lali Morales) (Signed 13-Jun-2022 13:22) Authored: Assessment/Recommendations , Note Completion Co-Signer: Service, History of Present Illness, Allergies, Assessment/Recommendations Last Updated: 13-Jun-2022 13:22 by Lali Morales) Normal [facility] Laboratory - Blood bankon ABO group Nom (Bld) A MG-Ot olaryng ology-Admin [place] [address] Work Phone: Rh immune globulin screen (Bld) [Interp] Positive [facility] [place] [address] Work Phone: No Panel Informationon 06-11 [facility] [place] [address] Work Phone: Order Reconciliationon 06-11 Order Reconciliation Page 1 Admission Reconciliation Document Reconciliation Type: Admission from OR requested on behalf of Alcides Velasquez (Resident) done by Alcides Velasquez ( (Resident)) Admission from OR - Reconciliation: 11-Jun-2022 12:35 by: Alcides Velasquez (Resident)) Home MedicationsEnteredLast Dose TakenReconciled with current Order Reconciliation Comment/ Additional Information BeneFIX intravenous kit 6500 international unit(s) intravenous prn, As Needed [id number] AM Factor IX Recombinant (BENEFIX) IVPB in Sterile Water 0.1 mLDOSE = 6,500 International Unit(s Every 12 HoursBeneFIX intravenous kit continued as the inpatient order Factor IX Recombinant (BENEFIX) IVPB Additional Current Orders Non-Formulary Medication Benefix (Coagulation Factor IX) InjectableDose = 6500 unit(s) IntraVenous Push OncePATIENTS OWN MEDS Normal [facility] Patient Profile - Adult v2on 06-11-2022 Patient Profile - Adult v2 Profile: Initial Info: How to be AddressedAaron(1) Spoken Language PreferredEnglish (1) Stated Reason for AdmissionRight parotidectomy Wants Family/Rep Notified of Admissionyes, primary contact Notify PCPnotify PCP Informed of Patient Visiting Rightsyes Arrived FromOR Patient Belongingsremains with patient Patient Belongings Remaining with Patientclothing; medication(s) Medications Brought to Hospitalyes Medication Dispositionbedside General Health: Blood Avoidance/Restrictionsnone (1) Previous Transfusion Reactionnot applicable(1) Weight in kg62.2 kilogram(s)(2) Weight in kpo594.1 pound(s) Weight Methodactual (measured) Scale Typebed Height in cm172.4 centimeter(s)(2) Height in feet5 feet Height in inches7.91 inch(es) Height Methodestimated BMI (kg/m2)20.927 square meter RSP Based Care: How would you like to participate in your careTo be informed on care changes and involved in decision making. What is the number one concern for you during this hospitalizationPain management and transition to home. What is the most important thing we can do to support you during this hospitalizationTo be informed on changes in care. Is there anything we need to know to best care for youTo keep family involved in changes in care. Substance: Smoking Statusnever smoker Health Mgmt: Symptoms/Conditions Managed at Homehematologic Hematologic Symptoms/Conditionshemophi karolina Hematologic Managementmanaged Relationship/Environ: Resource/Environmental Concernsreliable transportation Primary Source of Support/Comfortparent Lives Withparent(s) Living Arrangementshouse Services Anticipated at [facility] Anticipated Transition [place] Significant IndicatorsComplete Information Review: Allergies, Home Meds and Significant Events have been Reviewed and Verified with Patient/Familyyes ALLERGY, INTOLERANCE, ADVERSE EVENT: Allergies: No Known Allergies: Active Electronic Signatures: Cleo Muse (RUTYH) (Signed 11-Jun-2022 20:00) Authored: Initial Info, General Health, RSP Based Care, Substance, Health Mgmt, Relationship/Environ, Additional Information Last Updated: 11-Jun-2022 20:00 by Cleo Muse (RUTHY) References: 1. Data Referenced From Patient Profile - Preop v3 11-Jun-2022 11:36 2. Data Referenced From 1. Vital Signs 11-Jun-2022 11:36 Normal [facility] Patient Profile - Preop v3on 06-11-2022 Patient Profile - Preop v3 Patient Profile - Preop: Initial Info: Patient DemographicsName: SADIE OSMAN Date: 1995 Address: [address] [place] [address], [place], [address] Primary Phone [phone] How to be AddressedAaron Spoken Language PreferredEnglish Source of Informationpatient Stated Reason for Admissionright parotidectomy Primary Contact Name and NumberRaymond (dottie) [phone] Limitations on Visitors/Phone Callsnone Medications Brought to Hospitalno General Health: Weight in kg62.2 kilogram(s) Weight in cml438.1 pound(s) Weight Methodactual (measured) Scale Typestanding Height in feet5 feet Height in inches7.95 inch(es) Height in cm172.5 centimeter(s) Height Methodstated BMI (kg/m2)20.903 square meter Patient or Family Member Reaction to Anesthesianever had anesthesia Blood Avoidance/Restrictionsnone Previous Transfusion Reactionnot applicable Health Mgmt: Symptoms/Conditions Managed at HomeHEENT (head, eyes, ears, nose, throat); hematologic Barriers to Managing Healthnone Relationship/Environ: Lives Withparent(s) Living Arrangementshouse Resource/Environmental Concernsnone [facility] Anticipated at Transitionnone Tobacco Use: Tobacco Useno Pre-op Checklist: Arrival [id number] Arrival Time11:15 Procedure Typeright parotidectomy NPOyes Last Food [id number] 00:00 Last Clear Fluid [id number] 00:00 ID Band On Patientpatient ID (name) Consent Signedyes H&P Completeyes Anesthesia Assessment Completedyes EKG Performedsee results tab Chest X-Ray Performedsee results tab Preop Antibioticssent to OR Chlorhexadine Bath Givennot applicable Nasal Antiseptic Appliednot applicable Soap and Water Bath the Night Before Surgerynot applicable Hair Washed with Shampoonot applicable Surgical Site Infection Preventionno Pain Scales and Managementyes Additional Information: Information Review: Allergies, Home Meds and Significant Events have been Reviewed and Verified with Patient/Familyyes Allergy, Intolerance, Adverse Event: Allergies: No Known Allergies: Active Significant Events: 11-Jun-2022 hemophilia B: Past Medical History, Active 11-Jun-2022 right parotid mass: Past Medical History, Active Electronic Signatures: Rosalinda Grace (RN) (Signed 11-Jun-2022 11:40) Authored: Initial Info, General Health, Health Mgmt, Relationship/Environ, Tobacco Use, Pre-op Checklist, Additional Information Last Updated: 11-Jun-2022 11:40 by Rosalinda Grace (RUTHY) Normal [facility] Surgical Pathology Depar balbinanton 06-11-2022 [facility] Surgical Pathology Department Name SADIE OSMAN Pathologist: RODO PUCKETT DMD. 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 -- SEVEN LYMPH NODES, NEGATIVE FOR MALIGNANCY (0/7). NOTE: Sections show a fairy well circumscribed, partially encapsulated lesion involving parotid parenchyma. An admixture of ductal and myoepithelial components in the background of chondromyxoid stroma is identified. On high power, patchy cellular pleomorphism and mildly increased mitotic activity are noted throughout the lesion. There is no definitive intratumoral necrosis, no perineural invasion, no vascular invasion, and no invasion into surrounding parenchyma. In light of these findings the lesion is best classified as atypical. The specimen was entirely submitted and the lesion appears completely excised. Close clinical follow up is recommended. universal branch consultant: Dr Raciel Schneider and Dr. Jose Vogt The gross and/or microscopic findings were reviewed in conjunction with pathology resident, Susannah Aquino D.O. at Electronically Signed Out By RODO PUCKETT DMD./AMT By the signature on this report, the individual or group listed as making the Final Interpretation/Diagnosis certifies that they have reviewed this case. Diagnostic interpretation performed at [facility] [address] [facility] [address] Clinical History: Physician Contact Number: [phone] Fixative (A): Saline Clinical Diagnosis History: Parotid Mass Specimens Submitted As: A: RIGHT SUPERFICIAL PAROTIDECTOMY, STITCH SUPERIOR Gross Description: Received fresh in saline and placed in formalin, labeled with the patient?s name and hospital number and A, is an oriented lobulated segment of grimm-brown, soft tissue measuring 4.1 cm anterior to posterior, 4.0 cm superior to inferior, 3.4 cm superficial to deep. The specimen is inked as follows: deep- black, superficial-blue, posterior-green, anterior-yellow. The specimen is serially sectioned into 11 slices to reveal a well circumscribed, grimm-white mass with focal calcifications measuring 3.5 x 3.0 x 2.7 cm which grossly abuts the superficial, deep, anterior, and posterior margins. The mass is located 0.3 cm from the superior margin and 0.7 cm from the inferior margin. Minimal residual normal appearing parenchyma is identified. A photograph is taken. Assistant Professor Of Geography sections are submitted in 9 cassettes. The remainder of the specimen is submitted in 17 cassettes for a total of 26 cassettes on 06-23-2022 by NINI. NINI Summary of Cassettes: Specimen Label Site 1-2 slice 1, superior end, perpendicular 3-5 slice 6, mass to superficial, deep, anterior, and posterior margins, trisected 6-7 slice 9, mass to superficial, deep, anterior, and posterior margin, bisected 8-9 slice 11, inferior end, perpendicular 10-11 slice 2, bisected 12-14 slice 3, trisected 15-17 slice 4, trisected 18-20 slice 5, trisected 21-22 slice 7, bisected 23-24 slice 8, bisected 25-26 slice 10, bisected [facility]/06/15/2022 [facility] Department of Pathology [address] [place] [address] Normal [facility] Comment on above: Performed By: #### [facility] ####[facility] Surgical Pathology [id number] [place] [id number] CORONAVIRUS 2019, SCREEN ASY MPTOMATICon 06-10-2022 SARS-CoV-2 (COVID-19) RNA ROZ+probe Ql (Unsp spec) Not detected Normal Not Detected [facility] Comment on above: Result Comment: . This assay is designed to detect the N, ORF1ab and/or S genes of SARS-CoV-2 via nucleic acid amplification. A Negative (NOT DETECTED) result does not preclude 2019-nCoV infection since the adequacy of sample collection and/or low viral burden may result in presence of viral nucleic acids below the clinical sensitivity of this test method. Negative (NOT DETECTED) result should not be used as the sole basis for treatment or other patient management decisions. Rather negative results should be combined with clinical observations, patient history, and epidemiological information to make patient management decisions. Fact sheet for providers: https://www.fda.gov/media/307435/download Fact sheet for patients: https://www.fda.gov/media/269377/download This test has received FDA Emergency Use Authorization (EUA) and has been verified by [facility] ([facility]). This test is only authorized for the duration of time that circumstances exist to justify the authorization of the emergency use of in vitro diagnostic tests for the detection of SARS-CoV-2 virus and/or diagnosis of COVID-19 infection under section 564(b)(1) of the Act, 21 U.S.C. 360bbb-3(b)(1), unless the authorization is terminated or revoked sooner. [facility] is certified under CLIA-88 as qualified to perform high complexity testing. Testing is performed in the [facility] laboratories located at [address] [place] [address]. Performed By: #### C [facility] #### [address] [place] [address] Covid 19 Resultson 2 SARS-CoV-2 (COVID-19) RNA ROZ+probe Ql (Unsp spec) NEGATIVE COVID-19 Test Coronaviruses are common world-wide and are the cause of many common colds. SARS-COV2 is a new coronavirus that began circulating worldwide in 2019 so we are calling it COVID-19. It has been estimated that four out of five patients with COVID-19 will recover at home without the need for medical attention. Symptoms of COVID-19 may include cough, fever, shortness of breath, loss of taste or smell and other flu-like symptoms including chills, sore muscles, sore throat, and headache. Severe illness is more common in older people and people with other health problems such as high blood pressure, obesity, and immune system problems. If the test is positive, you have COVID-19. You will be contacted by the ordering physicians office and instructed to remain on home isolation, in accordance with CDC guidelines. You may also be contacted by the [facility] to see if any of your close contacts may have been exposed to the virus and need to quarantine. If the test is negative, you likely do not have COVID-19 at this time, but you still may have a different illness that can spread to other people (like Influenza, or the Flu) and could still be at risk for getting COVID-19. We recommend that you stay away from other people to limit the spread of illness until your symptoms are improving and you are fever-free for 24 hours without the use of fever lowering medications such as acetaminophen or ibuprofen. No test is 100% accurate so if you are still concerned you may have COVID-19, talk to your doctor about the need to continue to stay away from others. Medicines Unless your provider told you not to use the following: Acetaminophen (Tylenol and others) is generally safe. Anti-inflammatory medications, such as Ibuprofen (Advil or Motrin) or Naproxen (Aleve) can also be used. Fdfh-qmj-omhhzpd cough and cold medicines can be used according to the instructions on the package. Some pjuz-iux-ovcsfcz medicines also contain acetaminophen. Make sure you are not taking more than your recommended dose. For those not hospitalized, there is no specific treatment available for this illness. Antibiotics do not treat Coronaviruses. Follow-Up Follow up with your doctor by scheduling a virtual visit or consider follow-up at one of our urgent care fever clinics. If you are having difficulty breathing, or are very weak and having difficulty standing, this is a medical emergency. Call 911 or have someone take you to the nearest emergency room immediately. If possible, wear a facemask. Additional guidance from the CDC for patients who tested POSITIVE for COVID-19 How to isolate: Isolate yourself in a specific room at home and limit your contact with others. Use a separate bathroom from other members of the household, when possible. Leave home only to get essential medical care. Do not go to work, school or public areas. Avoid using public transportation, ride-sharing, or taxis. Restrict contact with pets and other animals. If you must care for your pet or be around animals while you are sick, wash your hands before and after your interaction and wear a facemask. Make sure that shared spaces in the home have good airflow, such as by an air conditioner or an opened window, weather permitting. Personal Hygiene Procedures: Wear a face mask when in the same room as other people or pets. If a face mask interferes with your breathing, others should wear a mask when sharing space with you. Frequent hand-washing: wash your hands with soap and water for at least 20 seconds. If soap and water are not available, use alcohol-based hand director of manufacturing. Avoid touching your eyes, nose, and mouth with unwashed hands. Household Hygiene Procedures: Avoid sharing personal household items such as dishes, glassware, cups, eating utensils, towels or bedding with other people or pets in your home. After use, these items should be washed with soap and hot water. Disinfect all high-touch surfaces every day with antibacterial cleaning solutions such as Lysol wipes, bleach, cleansers, etc. High-touch surfaces include tabletops, doorknobs, bathroom fixtures, toilets, phones, keyboards, tablets and bedside tables. Immediately clean any surfaces that may have blood, poop or body fluids on them, using antibacterial cleaning solutions such as Lysol wipes, bleach, cleansers, etc. If clothing or bedding come into contact with blood, poop or body fluids, they should be washed immediately. Follow the directions on the laundry detergent and clothing labels but hot water is recommended when possible. Stopping home isolation precautions: If possible, consult your doctor before stopping home isolation precautions. According to the CDC, you can discontinue home isolation precautions when you have met both of these criteria: Your fever and respiratory symptoms have been gone for 24 lanie (more content not included)... Normal [facility] CORONAVIRUS 2019, SCREEN ASY MPTOMATICon 06-09-2022 Lab Specimen Source Nasal, Nasopharyngeal Normal [facility] Comment on above: Performed By: #### C OVSC #### [facility] [address] [place] [address] Coronavirus 2019 RNA by PCR, Screening Asymptomticon 06-09-2022 Coronavirus 2019 RNA by PCR, Screening Asymptomtic Not detected Normal See Below -Otolaryng ology-[facility] 6332 Work Phone: Comment on above: SOURCE: Nasal, Nasop haryngealReference Range: Not Detected.This assay is designed to detect the N, ORF1ab and/or S genes of SARS-CoV-2 via nucleic acid amplification. A Negative (NOT DETECTED) result does not preclude 2019-nCoV infection since the adequacy of sample collection and/or low viral burden may result in presence of viral nucleic acids below the clinical sensitivity of this test method. Negative (NOT DETECTED) result should not be used as the sole basis for treatment or other patient management decisions. Rather negative results should be combined with clinical observations, patient history, and epidemiological information to make patient management decisions.Fact sheet for providers: https://www.fda.gov/media/925178/downloadFact sheet for patients: https://www.fda.gov/media/878770/downloadThis test has received FDA Emergency Use Authorization (EUA) and has been verified by [facility] ([facility]). This test is only authorized for the duration of time that circumstances exist to justify the authorization of the emergency use of in vitro diagnostic tests for the detection of SARS-CoV-2 virus and/or diagnosis of COVID-19 infection under section 564(b)(1) of the Act, 21 U.S.C. 360bbb-3(b)(1), unless the authorization is terminated or revoked sooner. [facility] is certified under CLIA-88 as qualified to perform high complexity testing. Testing is performed in the [facility] laboratories located at [address] [place] [address]. Laboratory - Blood bankon ABO group Nom (Bld) A MG-Ot olaryng ology-Admin [place] [address] Work Phone: Blood group antibody screen Ql Negative MG-Otolaryng ology-Admin [place] [id number] Work Phone: Rh immune globulin screen (Bld) [Interp] Positive MG-Otolaryng ology-[facility] [place] [address] Work Phone: Laboratory - Chemistry and C hemistry - challengeon 06-03-2022 Anion gap [Moles/Vol] 15 mmol/L 10 - 20 MG-Otolaryng ology-Admin [place] [address] Work Phone: [phone] Calcium [Mass/Vol] 10.3 mg/dL 8.6 - 10.6 MG-Shar laryng ology-Admin [place] [address] Work Phone: [phone] Chloride [Moles/Vol] 101 mmol/L 98 - 107 MG-Otolaryng ology-[facility] [place] [address] Work Phone: [phone] CO2 [Moles/Vol] 28 mmol/L 21 - 32 MG-Otolar yng ology-[place] [address] Work Phone: [phone] Creatinine [Mass/Vol] 0.88 mg/dL See Below MG-Otolaryng ology-Admin [place] [address] Work Phone: [phone] Comment on above: Reference Range: 0.5 0 - 1.30 Glucose [Mass/Vol] 82 mg/dL 74 - 99 MG-Shar laryng ology-Admin [place] [address] Work Phone: [phone] Potassium [Moles/Vol] 4.5 mmol/L 3.5 - 5.3 MG-Otolaryng ology-Admin [place] [address] Work Phone: [phone] Sodium [Moles/Vol] 139 mmol/L 136 - 145 MG-Shar laryng ology-[place] [address] Work Phone: [phone] Urea nitrogen [Mass/Vol] 14 mg/dL 6 - 23 MG-Otolaryng ology-Admin [place] [address] Work Phone: [phone] Laboratory - Coagulationon 0 06-03-2022 aPTT Coag (PPP) [Time] 46 s above high threshold 26 - 39 MG-Otolaryng ology-[facility] [place] [address] Work Phone: [phone] Comment on above: THE APTT IS NO LONGE R USED FOR MONITORING UNFRACTIONATED HEPARIN THERAPY. FOR MONITORING HEPARIN THERAPY, USE THE HEPARIN ASSAY. INR Coag (PPP) [Relative time] 1.0 {INR} 0.9 - 1.1 MG-Otolaryng ology-[facility] [place] [address] Work Phone: PT Coag (PPP) [Time] 11.3 s 9.8 - 13.4 MG-Otolaryng ology-[place] [address] Work Phone: Laboratory - Hematology and Cell countson 06-03-2022 Erythrocyte distribution width (RBC) [Ratio] 11.9 % See Below [facility] [address] Work Phone: Comment on above: Reference Range: 11. 5 - 14.5 Hematocrit (Bld) [Volume fraction] 47.6 % See Below [facility] [address] Work Phone: Comment on above: Reference Range: 41. 0 - 52.0 Hemoglobin (Bld) [Mass/Vol] 16.2 g/dL See Below [facility] [place] [address] Work Phone: Comment on above: Reference Range: 13. 5 - 17.5 MCHC (RBC) [Mass/Vol] 34.0 g/dL See Below [facility] [place] [address] Work Phone: Comment on above: Reference Range: 32. 0 - 36.0 MCV (RBC) [Entitic vol] 92 fL 80 - 100 [place] [address] Work Phone: Platelets (Bld) [#/Vol] 256 10*3/uL 150 - 450 MG-Otolaryng ology-[place] [address] Work Phone: RBC (Bld) [#/Vol] 5.20 {x10E12/L} See Below MG Otolaryng ology-Admin [place] [address] Work Phone: Comment on above: Reference Range: 4.5 0 - 5.90 WBC (Bld) [#/Vol] 5.6 10*3/uL 4.4 - 11.3 MG-[place] laryng ology-[place] [address] Work Phone: No Panel Informationon 06-03 >90 >90 MG-Otolaryng ology-Admin [place] [address] Work Phone: Comment on above: CALCULATIONS OF SUE MATED GFR ARE PERFORMED USING THE 2020 CKD-EPI STUDY REFIT EQUATION WITHOUT THE RACE VARIABLE FOR THE IDMS-TRACEABLE CREATININE METHODS.https://jasn.asnjournals.org/content//ASN. 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 SADIE OSMAN, is a 26 yr old male here for follow up of his right parotid mass. On CT he has an enlarged heterogenous mass 3.5cm in the superficial lobe of the parotid gland that has calcifications and irregular margins. Recommend FNA today which was successfully performed. He received Factor prior to his appointment and will repeat this in the next 12-24 hours per hematology recommendation. We have reviewed the likely requirement for a right parotidectomy. Risks, benefits and alternatives were discussed including but not limited to facial scar, deformity/asymmetry, postoperative numbness, facial nerve weakness - both transient and permanent, seroma, sialocele, bleeding, infection and Millie syndrome. In addition the surgical procedure, perioperative expectations including an overnight stay and drain placement were all discussed. Also reaching out to financial regarding assistance since he does not have health insurance, he is part of the [facility] community and does work in [employer]. He does have a phone number for us to reach him at. Follow up for surgery. I will call him with the biopsies results as soon as these are available. Chief Complaint follow up FNA, parotid mass History of Present IllnessMr. SADIE OSMAN, is a 26 year old male for follow up of his right parotid mass. Last seen 05/12/22. He had CT neck which shows a right parotid mass, heterogeneous. Recommend FNA. 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 After discussion the plan was to proceed with him being pre-treated with Factor today and then having the FNA followed by Factor in the next 12-24 hours. Here today with mom. History: Dx: Right parotid mass Dx2: Hemophilia Long standing history several yrs of right parotid mass, previous FNA benign (no records available) 05/12/22: CT neck w/contrast +heterogeneous ill-defined mass in the right parotid which is 3.5cm in size. 05/19/22: FNA Rt parotid PShx: He had impacted tooth removed as a child and nasal bone fx in the past. 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, self-pay Occupation: [employer] Review of Systems Constitutional: no fever, not feeling tired, no recent weight gain and no recent weight loss. Eyes: no eye pain, no double vision and no itching of the eyes. ENMT: no difficulty with hearing, no hearing loss, no pain in the ear, no vertigo, no tinnitus, the ears do not feel full, no discharge from the ears, no nosebleeds, no nasal congestion, no rhinorrhea, no sinus pressure, no nasal blockage/obstruction, no snoring, no postnasal drip, no sore throat, no hoarseness, the gums were not bleeding, no dry mouth, no dysphagia and no mouth ulcers. Cardiovascular: no history of murmur, no chest pain, no palpitations and no lower extremity edema. Respiratory: no shortness of breath, no dyspnea during exertion, no wheezing, not coughing up sputum and not coughing up blood. Gastrointestinal: no heartburn, no vomiting, no change in appetite and no pain on swallowing. Genitourinary: no dysuria and no difficulty urinating. Musculoskeletal: no arthralgias and no myalgias. Integumentary: no rashes, no skin lesions, no itching, no dry skin and no unusual growth on the skin. Neurological: no fainting, no headache, no numbness, no convulsions and no weakness. Psychiatric: no anxiety and no depression. Endocrine: no increased thirst. Hematologic/Lymphatic: no swollen glands, no tendency for easy bleeding and no tendency for easy bruising. ENT and Constitutional systems have been reviewed and are negative for complaint except what is stated in the HPI and/or Past Medical History. All other systems have been reviewed and are negative for complaint. 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 Over the last 2 weeks have you felt down, depressed or hopeless? (If yes, answer PHQ-9 below)No PHQ-2 #2. Over the last 2 weeks have you felt little interest or pleasure in doing things? (If yes, answer PHQ-9 below)No Falls Screening (Age 18+)a) No falls within the last year Physical Exam Constitutional: General appearance: Healthy appea (more content not included)... Normal [facility] No Panel Informationon 05-19 -Otolaryn ology-Admin [place] [address] Work Phone: Tobacco Screening.on 022 Adult depression screening assessment No -[facility] 8983 Work Phone: Fall risk assessment a) No falls within the last year 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 SADIE OSMAN, is a 26 yr old male here for follow up of his right parotid mass. On CT he has an enlarged heterogenous mass 3.5cm in the superficial lobe of the parotid gland that has calcifications and irregular margins. Discussed with patient the findings of the imaging. I recommend proceeding with FNA to obtain tissue diagnosis. We discussed that this is likely require a parotidectomy. Risks, benefits and alternatives were discussed including but not limited to facial scar, deformity/asymmetry, postoperative numbness, facial nerve weakness - both transient and permanent, seroma, sialocele, bleeding, infection and Millie syndrome. In addition the surgical procedure, perioperative expectations including an overnight stay and drain placement were all discussed. Before the surgery, need to have FNA done to help with surgical planning and expectations. 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 Coordinated with hematology and scheduled FNA next week in clinic. Also reaching out to financial regarding assistance since he does not have health insurance, he is part of the [facility] community and does work in [employer]. He does have a phone number for us to reach him at. Chief Complaint review CT Scan History of Present IllnessMrJuan José OSMAN, is a 26 year old male for follow up of his right facial mass. Last seen 05/03/22. Since last visit he had CT neck scan immediately prior to his visit today. Patient has no change in symptoms from previous visit. No growth in the last 2 weeks. He has Hemophilia and saw Dr. Morales 10/17. Here today with mom. He does have Factor at home that he keeps on hand if needed for an accident. I personally reviewed CT neck w/contrast which shows a heterogeneous ill-defined mass in the right parotid which is 3.5cm in size. PShx: He had impacted tooth removed as a child and nasal bone fx in the past. Pmhx: hemophilia B (follows w/ Dr Morales) I have personally reviewed PMH, PSH, FH (reviewed and not pertinent to the presenting complaint except as noted above) and SH which are provided in the attached Adult Patient Questionnaire which is scanned into the electronic medical record. SH: Tob: none ETOH: none [facility], self-pay Occupation: [employer] Review of Systems Constitutional: no fever, not feeling tired, no recent weight gain and no recent weight loss. Eyes: no eye pain, no double vision and no itching of the eyes. ENMT: no difficulty with hearing, no hearing loss, no pain in the ear, no vertigo, no tinnitus, the ears do not feel full, no discharge from the ears, no nosebleeds, no nasal congestion, no rhinorrhea, no sinus pressure, no nasal blockage/obstruction, no snoring, no postnasal drip, no sore throat, no hoarseness, the gums were not bleeding, no dry mouth, no dysphagia and no mouth ulcers. Cardiovascular: no history of murmur, no chest pain, no palpitations and no lower extremity edema. Respiratory: no shortness of breath, no dyspnea during exertion, no wheezing, not coughing up sputum and not coughing up blood. Gastrointestinal: no heartburn, no vomiting, no change in appetite and no pain on swallowing. Genitourinary: no dysuria and no difficulty urinating. Musculoskeletal: no arthralgias and no myalgias. Integumentary: no rashes, no skin lesions, no itching, no dry skin and no unusual growth on the skin. Neurological: no fainting, no headache, no numbness, no convulsions and no weakness. Psychiatric: no anxiety and no depression. Endocrine: no increased thirst. Hematologic/Lymphatic: no swollen glands, no tendency for easy bleeding and no tendency for easy bruising. ENT and Constitutional systems have been reviewed and are negative for complaint except what is stated in the HPI and/or Past Medical History. All other systems have been reviewed and are negative for complaint. Active Problems Neck mass (784.2) (R22.1) Social History No alcohol use No caffeine use Non-smoker (V49.89) (Z78.9) Allergies No Known Drug Allergies Recorded By: Sola Lauren; 05/12/2022 11:55:01 AM Dust Recorded By: Jacquelyn Davila; 05/03/2022 3:41:10 PM Pollen Recorded By: Jacquelyn Davila; 05/03/2022 3:41:10 PM Current Meds Medication NameInstruction No Reported Medications Vitals Vital Signs Recorded: 12May2022 11:54AM Height5 ft 7 in Kfzfou741 lb BMI Hoxozglkxy86.08 kg/m2 BSA Calculated1.74 Tobacco Useb) No PHQ-2 #1. Over the last 2 weeks have you felt down, depressed or hopeless? (If yes, answer PHQ-9 below)No PHQ-2 #2. Over the last 2 weeks have you felt little interest or pleasure in doing things? (If yes, answer PHQ-9 below)No Falls Screening (Age 18+)a) No falls within the last year [facility] (more content not included)... Normal [facility] Tobacco Screening.on Adult depression screening assessment No MG-Otolaryng ology-[place] Work Phone: Fall risk assessment a) No falls within the last year MG-Otolaryng ology-[place] Work Phone: Tobacco use status [facility] b) No MG-Otolaryng ology-[place] Work Phone: Initial Visit (Otolaryngolog y)on 05-03-2022 Initial Visit (Otolaryngology) Diagnoses/Problems Non-smoker (V49.89) (Z78.9) Non-smoker (V49.89) (Z78.9) Neck mass (784.2) (R22.1) Orders CT Neck with Contrast; Status:Hold For - Scheduling,Retrospective Authorization; Requested for:03May2022; Patient taking Metformin or Derivatives? : Unknown Radiologist to Determine Optimal Study : Y What are the patient's signs and symptoms? : R neck mass Tobacco Use Screening; Status:Complete; Done: [id number] Tobacco Use Screening; Status:Complete; Done: 06Slk8885 Tobacco Use Screening; Status:Complete; Done: [id number] Provider Impressions Mr. SADIE OSMAN, is here for an initial consultation of right sided facial mass progressively enlarging for the past 7-10 days. Previously biopsied by Colleen KENNEDY told benign and salivary in nature but progressively enlarging and sore. On exam, 3-4cm hard fixed mass over tail of parotid. Discussed with patient this is likely parotid gland in origin but recommend CT Neck for further evaluation. Concern for parotid neoplasm and concern based on size, firmness and fixation. No FN weakness today. Will wait on FNA until CT results come back secondary to his hemophilia status. Will reach out to Dr. Morales regarding need for FNA and if any special precautions need to be done prior to or in conjunction with the FNA. Also discussed that the likely treatment for this could be surgical and if surgery is recommended would again reach out to Dr. Morales regarding protocol for his hemophilia as this will complicate surgical treatment and could require hospitalization. Follow up in [address] neck w/contrast. Also reaching out to financial regarding assistance since he does not have health insurance, he is part of the [facility] community and does work in [employer]. He does have a phone number for us to reach him at. Chief Complaint right neck mass History of Present IllnessMr. SADIE OSMAN, is a 26 year old male referred to me today by Dr. Morales for further evaluation and treatment of right facial mass. Patient states he first noticed a right facial mass about 7-10 years ago that has been progressively enlarging in size associated with more discomfort recently. Previous work up included needle biopsy by Colleen KENNEDY in 2016 that was reportedly benign, salivary gland in nature and no further intervention recommended at that time. Since the mass has grown and becoming sore. Otherwise denies fever chills night sweats weight loss. He reports occasional bleeding from gums which he isn't sure if this is associated with the mass growth. No change in swallowing. PShx: He had impacted tooth removed as a child and nasal bone fx in the past. Pmhx: hemophilia B (follows w/ Dr Morales) I have personally reviewed PMH, PSH, FH (reviewed and not pertinent to the presenting complaint except as noted above) and SH which are provided in the attached Adult Patient Questionnaire which is scanned into the electronic medical record. SH: Tob: none ETOH: none [facility] community, self-pay Occupation: [employer] Review of Systems All other systems have been reviewed and are negative for complaint. Social History No alcohol use No caffeine use Non-smoker (V49.89) (Z78.9) Allergies Dust Recorded By: Jacquelyn Davila; 05/03/2022 3:41:10 PM Pollen Recorded By: Jacquelyn Davila; 05/03/2022 3:41:10 PM Vitals Vital Signs Recorded: 03May2022 03:40PM Height5 ft 8 in Zbnljf302 lb BMI Wymjlefdzj79.59 kg/m2 BSA Calculated1.77 Tobacco Useb) No Falls Screening (Age 18+)a) No falls within the last year Physical Exam Constitutional: General appearance: Healthy appearing with obvious right facial mass see below, well-nourished, well groomed. No acute distress. 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 No hoarseness, stridor or stertor. Psychiatric: Oriented to person, place and time. Normal mood and affect. Neurologic: Cranial nerves II-XII grossly intact and symmetric bilaterally - specifically right FN intact AND strong in all branches Head and Face: Head: Atraumatic with no masses, lesions or scarring. Face: +right facial mass see below Sinuses: Palpation of the face revealed no sinus tenderness Salivary glands: There is a 3-4cm mass at the inferior aspect of the ear lobule which is located at the area of the right parotid tail, however this mass is irregular, nodular in appearance, firm and fixed TMJ: Normal, no trismus. Eyes: EOMI, PERRL, conjunctiva not edematous or erythematous Ears: External inspection of ears with no deformity, scars or masses - there is a mass at the inferior aspect of the ear extending to the EAC but this is located at the area of the parotid. Otoscopic examination: Auditory canals with normal appearance, no cerumen obstruction, erythema or edema. Tympanic membranes intact without middle ear effusion. 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 Nose: External inspection of nose: No nasal lesions, lacerations or scars. S (more content not included)... Normal What's in My Handbag Tobacco Screening.on 022 Fall risk assessment a) No falls within the last year [facility] [address] Work Phone: Tobacco use status CP b) No [facility] [address] Work Phone: Vital Signs Date Time Vital Sign Value Performing Clinician Facility 10-08-2024 14:54-0500 Body mass index (BMI) [Ratio] 20.82 kg/m2 Kamari Ortega MD Work Phone: [facility] 10-08-2024 14:54-0500 Body weight 61.24 kg Kamari Ortega MD Work Phone: [facility] 10-08-2024 14:54-0500 Diastolic blood pressure 84 mm[Hg] Kamari Ortega MD Work Phone: [facility] 10-08-2024 14:54-0500 Heart rate 73 /min Kamari Ortega MD Work Phone: [facility] 10-08-2024 14:54-0500 Systolic blood pressure 145 mm[Hg] Kamari Ortega MD Work Phone: [facility] 06-21-2022 16:06-0400 Body height 170.18 cm Evangelista W Ricardo Work Phone: LR-Gtnnhqpxigfbes-W dmin [place] [address] Work Phone: 06-21-2022 16:06-0400 Body mass index (BMI) [Ratio] 21.5 kg/m2 Evangelista W Ricardo Work Phone: SZ-Yzukcvvawzfzwb-X dmin [place] [address] Work Phone: 06-21-2022 16:06-0400 Body surface area Derived from formula 1.72 m2 Evangelista W Ricardo Work Phone: NV-Wxfqrdqteorayn-E dmin [place] [address] Work Phone: 06-21-2022 16:06-0400 Body weight 62.26 kg Evangelista Pinedaler Work Phone: PW-Gmdccmvvtwruhv-G in [place] [address] Work Phone: 05-19-2022 15:02-0400 Body height 170.18 cm Kamari Ortega MD Work Phone: [facility] Work Phone: 05-19-2022 15:02-0400 Body mass index (BMI) [Ratio] 22.43 kg/m2 Kamari Ortega MD Work Phone: UU[facility]rrkkjhcjm[facility] Work Phone: 05-19-2022 15:02-0400 Body surface area Derived from formula 1.75 m2 Kamari Ortega MD Work Phone: KR[facility]ckqhgsoi[facility] Work Phone: 05-19-2022 15:02-0400 Body temperature 98.6 [degF] Kamari Ortega MD Work Phone: SJ[facility]uhielzmcnwj[facility] Work Phone: 05-19-2022 15:02-0400 Body weight 64.95 kg Kamari Ortega MD Work Phone: C[facility]ibbxjud[facility] Work Phone: 05-12-2022 11:54-0400 Body height 170.18 cm Kamari Ortega MD Work Phone: SS-Womxawewbcahaw-H [place] Work Phone: 05-12-2022 11:54-0400 Body mass index (BMI) [Ratio] 22.08 kg/m2 Kamari Ortega MD Work Phone: NN-Tjfihvzwuktrbs-P [place] Work Phone: 05-12-2022 11:54-0400 Body surface area Derived from formula 1.74 m2 Kamari Ortega MD Work Phone: AP-Pltvjbkxpupncx-Q [place] Work Phone: 05-12-2022 11:54-0400 Body weight 63.96 kg Kamari Ortega MD Work Phone: LF-Xqivltildyppsn-W [place] Work Phone: 05-03-2022 15:40-0400 Body height 172.72 cm Kamari Ortega MD Work Phone: WG-Hwnwadavnmtxzt-O [place] [address] Work Phone: 05-03-2022 15:40-0400 Body mass index (BMI) [Ratio] 21.59 kg/m2 Kamari Ortega MD Work Phone: SA-Nvijskvuyqlgwn-V [place] [address] Work Phone: 05-03-2022 15:40-0400 Body surface area Derived from formula 1.77 m2 Kamari Ortega MD Work Phone: QX-Jqvwcqileplves-M [place] [address] Work Phone: 05-03-2022 15:40-0400 Body weight 64.41 kg Kamari Ortega MD Work Phone: YX-Rnjcvvverfecpl-F [place] [address] Work Phone: Encounters Encounter Date Encounter Type Care Provider Facility Start: 04-21-2025 ambulatory [facility] Facility :[facility] Start: 10-08-2024 End: 10-08-2024 Office outpatient visit 15 minutes Kamari Ortega MD Work Phone: [facility] Comment on above: Postauricular swelli ng (Primary Dx); History of pleomorphic adenoma of salivary gland; 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 Kamari Ortega Facility:[id number] Start: 06-14-2022 Chart Update Evangelista Silva Work Phone: YL-Umazxeymfidrew-Iny in [place] [address] Work Phone: Start: 06-11-2022 End: 06-12-[address] Kamari Ortega Facility:[facility] Start: 06-11-2022 SURGCMC, Provider: Kamari Ortega, Status: Pen, Time: 8:00 AM Kamari Ortega MD Work Phone: JQ-Oleuwdflnbwfsg-Aay in [place] [address] Work Phone: Start: 06-10-2022 Chart Update Kamari Ortega MD Work Phone: QT-Zwrwgkgvqmxecy-Cyd in [place] [address] Work Phone: Start: 05-19-2022 Office outpatient vi sit 15 minutes Kamari Ortega MD Work Phone: SS-Rvchtqjprcwufc-Sij in [place] [address] Work Phone: Start: 05-19-2022 Patient encounter procedure Kamari Ortega MD Work Phone: BR-Wzrkekzjtroyrp-Wga [facility] 4[address] Work Phone: Start: 05-12-2022 Office outpatient vi sit 25 minutes Kamari Ortega MD Work Phone: OV-Ijcxwbfdbmxaid-Nox dman Work Phone: Start: 05-03-2022 Office consultation new/estab patient 60 min Kamari Ortega MD Work Phone: OJ-Ecrtriymonimua-Wiu on [address] Work Phone: Procedures Date Procedure Procedure Detail Performing Clinician Start: 10-08-2024 Follow-up visit Follow-up KAMARI ORTEGA Plan of Treatment Date Care Activity Detail Author Start: 2046 Zoster Vaccines (1 of 2) Zoste r Vaccines (1 of 2) [facility] Start: 05-27-2024 COVID-19 Vaccine ( season) COVID-19 Vaccine ( season) [facility] Start: 05-27-2024 Influenza vaccination Influenza Vacc ine (#1) [facility] Start: 06-21-2022 POV, Provider: Kamari Ortega, Status: Pen, Time: 4:00 PM POV, Provider: Kamari Ortega, Status: Pen, Time: 4:00 PM WO-Vnkrcpndiosmrs-Zdzt n [place] [address] Work Phone: Start: 06-11-2022 SURGCMC, Provider: Kamari Ortega, Status: Pen, Time: 8:00 AM SURGCMC, Provider: Kamari Ortega, Status: Pen, Time: 8:00 AM NW-Azakmfkotjlkgt-Ljoy n [place] [address] Work Phone: Start: 05-19-2022 MSO, Provider: Kamari Ortega, Status: Pen, Time: 3:00 PM MSO, Provider: Kamari Ortega, Status: Pen, Time: 3:00 PM LI-Udklpmjuhjhvfn-Dmjz n [place] [address] Work Phone: Start: 2018 DTaP/Tdap/Td Vaccine s (1 - Tdap) DTaP/Tdap/Td Vaccines (1 - Tdap) [facility] Start: 12-01-2015 Hepatitis B Vaccines (1 of 3 - 19+ 3-dose series) Hepatitis B Vaccines (1 of 3 - 19+ 3-dose series) [facility] Start: 2014 Hepatitis C screening Hepatitis C Sc reening [facility] Start: 02-25-2014 Varicella vaccination Varicell a Vaccines (1 of 2 - 13+ 2-dose series) [facility] Start: 1996 HIV screening HIV Screening [facility] Start: 1996 Lipid panel Lipid Panel [facility] Start: 1996 Yearly Adult Physical Yearly Adult P hysical [facility] Payers Date Payer Category Payer Self-pay 2024 [employer] [id number] 2022 Unknown [id number] 1996 Unknown [id number] [id number]. [id number] 1996 Unknown [id number] 2.16. [id number] 1996 Unknown [id number] 2.16. [id number] 1996 Unknown [id number] 2.16. [id number] 1996 Unknown [id number] 2.16. [id number] Self-pay 1996 Unknown Unknown [id number] Social History Date Type Detail Facility Start: 10-08-2024 No alcohol use No alcohol use [facility] [facility] [address] Work Phone: Start: 10-08-2024 [facility] Work Phone: Start: 10-08-2024 Tobacco use and exposure Smokeless tobacco non-user [facility] Work Phone: Start: 10-08-2024 Alcoholic beverage intake Lifetime non-drinker (finding) [facility] Work Phone: Start: 10-08-2024 Tobacco use panel [facility] Work Phone: Start: 1996 Sex assigned at Not on file [facility] Work Phone: Start: 09-28-2024 End: 10-08-2024 Exposure to SARS-CoV-2 (event) Not sure [facility] Clinical Notes 05-04-2012 to 10-21-2024 Assessment & Plan Note - Kamari Ortega MD - 10/21/2024 9:58 PM ESTAssessment & Plan Note - aKmari Ortega MD - 10/21/2024 9:58 PM ESTNicfabian Ortega MD - 10/08/2024 3:30 PM EST Note Date & Type Note Facility 10-21-2024 Evaluation + Plan note Associated Problem(s): Postauricular swelling Consistent with reactive lymph node Follow up as needed [facility] Work Phone: 10-21-2024 Miscellaneous Notes Associated Problem(s): Postauricular swelling Consistent with reactive lymph node Follow up as needed documented in this encounter [facility] Work Phone: 10-08-2024 History of Present illness Narrative History Of Present Illness Sadie Osman is a 28 y.o. male presenting with right post-auricular swelling since Thanksgiving of last year. Of note, he was recently diagnosed with Psoriasis a few months ago, noting an episode of full body and scalp rash requiring one dose of subcutaneous immunomodulator therapy. Since then he was recommended for management with diet change by fuel storage technician with subsequent improvement in his psoriasis. Since 07/2024 however, his right postauricular swelling has been persistent and has not decreased in size. Denies any associated symptoms with it otherwise: no pain, skin changes, drainage, fevers, chills, sweats, weight loss or concerns otherwise. 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 Denies odynophagia, dysphagia or otalgia. Tolerating a regular diet. Denies weight loss. No fevers/chills. No night sweats. Denies alcohol, smoking or illicit drug use. 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 Surgical History He has no past surgical history on file. Social History He reports that he has never smoked. He has never used smokeless tobacco. He reports that he does not drink alcohol and does not use drugs. Family History No family history on file. Allergies Aspirin, Bee pollen, House dust, Ibuprofen, and Nsaids (non-steroidal anti-inflammatory drug) Review of Systems Denies odynophagia, dysphagia or otalgia. Tolerating a regular diet. Denies weight loss. No fevers/chills. No night sweats. PHYSICAL EXAMINATION: Constitutional: No acute distress Voice: No hoarseness or other abnormality Respiration: Breathing comfortably, no stridor Cardiovascular: No clubbing/cyanosis/edema in hands Eyes: EOM intact, sclera normal Neuro: Alert and oriented times 3, Cranial nerves II-XII grossly intact and symmetric bilaterally Head and Face: Well-healed right parotidectomy incisional scar, approximately 2 cm non-tender, soft, mobile, superficial right postauricular mass consistent with lymph node without overlying skin changes, diffuse,dry scaly crusting over posterior scalp hair line, sinuses non-tender to palpation Salivary Glands: Parotid and submandibular glands normal bilaterally Right Ear: Normal external ear, external auditory canal, and TM to otoscopy, normal hearing to whispered voice. Left Ear: Normal external ear, external auditory canal, and TM to otoscopy, normal hearing to whispered voice. Nose: External nose midline, anterior rhinoscopy is normal with limited visualization to the anterior aspect of the interior turbinates, no bleeding or drainage, no lesions Oral Cavity/Oropharynx/Lips: Normal mucous membranes, normal floor of mouth/tongue/OP, no masses or lesions Pharynx: no masses or lesions Neck/Lymph: No LAD, no thyroid masses, trachea midline Skin: Neck skin is without scar or injury Psych: Alert and oriented with appropriate mood and affect Last Recorded Vitals Blood pressure 145/84, pulse 73, weight 61.2 kg (135 lb). 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 Reassured patient given its location there is low concern for recurrence of parotid neoplasm. Presentation most consistent with reactive lymphadenopathy following said psoriasis flare, noted to be relatively stable in size recently. Discussed with patient options for observation given this above benign history and exam versus further work-up with imaging I.e. ultrasound versus CT. He elects to observe and will return should he develop new or worsening symptoms and will return to clinic as needed. Maximilian Belle DO, PGY4 I saw and evaluated the patient. I personally obtained the sullivan and critical portions of the history and physical exam or was physically present for sullivan and critical portions performed by the resident/fellow. I reviewed the resident/fellow's documentation and discussed the patient with the resident/fellow. I agree with the resident/fellow's medical decision making as documented in the note. Kamari Ortega MD documented in this encounter [facility] Work Phone: 06-12-2022 Note Send Summary: Discharge Summary Providers: Provider RoleProvider Name ReferringFowKamari rihcard Nolan W AttendingFoKamari gallo Note Recipients: Evangelista Silva MD - [id number] [] Kamari Ortega MD Discharge: Summary: Admission Date: .11-Jun-2022 10:04:00 Discharge Date: 12-Jun-2022 Attending Physician at Discharge: Kamari Ortega Admission Reason: parotid mass Final Discharge Diagnoses: Parotid mass Hemophilia Procedures: Date: 11-Jun-2022 17:17:00 Procedure Name: 1. Right parotidectomy with facial nerve dissection 2. Intraoperative nerve monitoring Condition at Discharge: Satisfactory Disposition at Discharge: .Home Vital Signs: T PRBPMAPSpO2 [id number]/6497% Date/Time06/12 5: 5: 5: 5: 5:09 Range(36.7C - 37.3C ) (80 - 92 ) (18 - 18 ) (111 - 131 )/ (64 - 83 ) (96% - 98% ) Highest temp of 37.3 C was recorded at 06/12 2:50 Date: Weight/Scale Type:Height: 11-Jun-2022 19:5362.2 kg / sdi250.4 cm Physical Exam: General: Alert, oriented, no acute distress Resp: Breathing comfortably on room air, no stridor Head: Atraumatic, normocephalic Face: right modified alfredo incision, covered in steri strips, healing well, clean/dry/intact, no drainage, no strikethrough, no evidence of hematoma; no facial nerve weakness; Oral Cavity: MMM Ears: external ears normal Nose: external nose normal Neck: Incision c/d/i Hospital Course: 26 yr old male with right parotid mass s/p superficial parotidectomy on 06/[address] Ortega. Please see operative report for full details. Patient tolerated the procedure well and recovered briefly in PACU before being transitioned to regular nursing floor. Post-op course was uncomplicated. Patient was resumed on home factor IX medication, and received scheduled q12hr dosing while in hospital. Diet was advanced as tolerated. IV medication transitioned to oral as diet advanced. On the day of discharge, the pt was tolerating a diet, pain was controlled on PO pain medication, and they were ambulating and voiding spontaneously. They were discharged home in stable condition with instructions to follow up as outpatient after receipt of noon time factor IX dosing. Discharge Information: and Continuing Care: Lab Results - Pending: Surgical Pathology Drawn at 11-Jun-2022 16:00:00 Radiology Results - Pending: None Discharge Instructions: Activity: activity with assistance. May shower.. 48 hours after surgery May not return to school/work until follow-up visit with. Dr Ortega May not drive while taking narcotics. No pushing, pulling, or lifting objects greater than 20 pounds until follow-up visit. Nutrition/Diet: regular Wound Care: You have small paper tapes over small surgery incisions. These tapes may get wet in shower, pat dry. The strips may become loose and fall off on their own, any strips that remain will be removed at your follow up visit. Follow Up Appointments: Follow-Up Appointment 01: Physician/Dept/Service: Dr Ortega - ENT Reason for Referral: post op visit Scheduled Date/Time: 21-Jun-2022 16:00 Location: [place] [address] Discharge Medications: Home Medication acetaminophen 325 mg oral tablet - 3 tab(s) orally every 8 hours PRN Medication traMADol 50 mg oral tablet - 1 tab(s) orally every 6 hours, As Needed G89.18 postop pain BeneFIX intravenous kit - 6500 international unit(s) intravenous prn, As Needed DNR Status: Code StatusCode Status order at time of discharge: Full Code Attestation: Note Completion: I am a: Resident/Fellow Attending AttestationI saw and evaluated the patient. I personally obtained the sullivan and critical portions of the history and physical exam or was physically present for sullivan and critical portions performed by the resident/fellow. I reviewed the resident/fellows documentation and discussed the patient with the resident/fellow. I agree with the resident/fellows medical decision making as documented in the note. I personally evaluated the patient [id number] Electronic Signatures: Kamari Ortega) (Signed 17-Jun-2022 10:28) Authored: Summary Content, Ongoing Care, DNR Status, Note Completion Co-Signer: Send Summary, Summary Content, Ongoing Care, Note Completion Ondina Winkler (Resident)) (Signed 12-Jun-2022 10:04) Authored: Send Summary, Summary Content, Ongoing Care, Note Completion Last Updated: 17-Jun-2022 10:28 by Kamari Ortega) [facility] 06-11-2022 Note PROCEDURE DETAILS Preoperative Diagnosis: 1. Right parotid pleomorphic adenoma 2. Hemophilia Postoperative Diagnosis: 1. Right parotid pleomorphic adenoma 2. Hemophilia Surgeon: Robert Resident/Fellow/Other Lead Generation Representative: Ron Procedure: 1. Right parotidectomy with facial nerve dissection 2. Intraoperative nerve monitoring Anesthesia: General Estimated Blood Loss: 15 Findings: 4cm firm right superificial parotid mass Specimens(s) Collected: yes, Right superficial parotid Complications: None Patient Returned To/Condition: PACU/Stable Operative Report: INDICATIONS: Sadie is a 26 year old male who presented for evaluation for a parotid mass for many years than had recently begun progressively enlarging. FNA was consistent with pleomorphic adenoma however CT scan showed irregular borders and calcifications concerning for the possibility of a malignant conversion. 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 He received treatment in the preop area prior to surgery and the plan was to admit him to the hospital after surgery. Surgical excision was recommended for definitive diagnosis and treatment. The risks, benefits, and alternatives to the procedure were discussed with the patient and they elected to proceed. FINDINGS: 1. 4cm parotid mass without facial nerve involvement 2. Full facial nerve dissection in anterograde fashion. Nerve trunk and all branches intact and stimulated at the end of the case 3. Greater auricular nerve sacrificed due to close proximity of nerve to tumor. 4. There was no bleeding at any time during the entire procedure. PROCEDURE: The patient was seen and consent was confirmed in the preop area. They were brought back to the operating room and laid supine on the operating table. Proper time out was performed. General anesthesia was induced and they were intubated without issue. The head of the bed was then turned 90 degrees. A shoulder roll was placed. The facial nerve monitor was connected and checked for accuracy. Preoperative antibiotics were administered and documented. No long-term muscle relaxants were used. A modified Alfredo incision was planned to overlie the face and marked with a marker. This was then injected with 2% lidocaine with epinephrine. Following this, the patient was prepped and draped in the usual fashion. A 15-blade scalpel was used to incise the skin. Skin hooks were used for retraction. Sharp was used and the incision taken down to the level of the SMAS overlying the parotid tissue and mass. This was done first in the preauricular area and then we extended our incision down into the neck. The greater auricular nerve was identified and sacrificed due to its close proximity to the tumor. At this point, we then raised an anteriorly based skin flap overlying the parotid fascia. The mass was very superficial and our dissection at times was within the subcutanoeous tissue and dermis as we continued anteriorly. This was done to the anterior most extent of the mass. Following this, we then developed a plane medial to the sternocleidomastoid up to the mastoid tip. This allowed us to visualize the posterior belly of the digastric, which was then followed towards the mastoid tip. This set our depth of dissection. A plane was developed between the parotid and the perichondrium of the tragus, and this was taken down to the level of the styloid base using blunt and sharp dissection. The parotid was retracted anteriorly with malleable retractors. A Foster was used to gently divide the tissue overlying the facial nerve between the styloid base and digastric. This was done with the Harmonic, blunt and sharp dissection. In this way, careful dissection did reveal the facial nerve that was displaced much deeper than expected by the mass. Once the facial nerve main trunk was identified, we then carefully dissected the nerve branches starting first at the lower division and then working up to the superior division. The pes was splayed by the mass and the superior division was displaced superiorly. The parotid fascia inferior to the mass was incised with the Harmonic and malleable retractors were used to aid in retraction. We then continued to follow the lower division facial nerve branches dissecting all branches free of the mass. All the parotid tissue overlying this area was divided. In a similar fashion, we rolled the tumor off the superior division of the facial nerve and all of the branches were dissected out to the anterior aspect of the mass dividing tissue adjacent to the mass as needed. Finally, the specimen was removed from the surgical field, oriented and passed off for pathologic analysis. The neck was copiously irrigated. Hemostasis was achieved. The main trunk and branches facial nerve main trunk was stimulated with the nerve stem on 0.5 mV. This produced a good robust response and a (more content not included)... [facility] 06-11-2022 History of Present illness Narrative Mr. SADIE OSMAN, is a 26 year old male here for his first postop s/p right parotidectomy 06/11/22. Discharged 06/12/22. Called 06/14/22 when a stitch came out and he had some bleeding. This stopped after factor and he did not require hospitalization. He has done well. Here alone today. He is doing well. He is getting bored at home. Path remains pending.History:Dx: Right parotid pleomorphic adenomaDx2: HemophiliaLong standing history several yrs of right parotid mass, previous FNA benign (no records available)05/12/22: CT neck w/contrast +heterogeneous ill-defined mass in the right parotid which is3.5cm in size.05/19/22: FNA Rt parotid +pleomorphic adenoma06/11/22: S/p Right parotidectomyPShx: He had impacted tooth removed as a child and nasal bone fx in the past.Pmhx: hemophilia B (follows w/ Dr Morales)SH:Tob: noneETOH: [facility], self-payOccupation: [employer] YY-Tfjbbtcmcpzwpg-Mouen [place] [employer] Work Phone: 06-11-2022 Note Clinical Note - Phar melia v2: Education: Document TopicMedication Education MedicationMeds to Beds: Patient accepts Meds to Beds service at discharge, [facility] Sources used to confirm home medication list: Patient interview and pre-op instructions list with surgical team present. High alert medications: bleed risk: BeneFIX intravenous kit 6500 international unit(s) intravenous prn Additional comments: Patient had his medication with him in the PACU. Surgeon stated that he was going to receive it 30 minutes before his surgery. Medication home list complete Please reach out via momondo for questions Gio Bryant, Meds PGY1 Resident [facility] Is This Intervention Medication Reconciliation Relatedyes Time [id number] minutes Additional NotesHome Medications Review Status for Reconciliation: Complete Med Status: Patient Currently Takes Medications Drug Name: BeneFIX intravenous kit Instructions: 6500 international unit(s) intravenous prn, As Needed Allergy: Allergies Summary No Known Allergies Electronic Signatures: Madai Bryant ([facility]) (Signed 11-Jun-2022 12:00) Authored: Education, Allergy Valeriy Yung ([facility]) (Signed 11-Jun-2022 13:09) Co-Signer: Education, Allergy Last Updated: 11-Jun-2022 13:09 by Valeriy Yung ([facility]) [facility] 05-12-2022 History of Present illness Narrative Mr. SADIE OSMAN, is a 26 year old male for follow up of his right parotid mass. Last seen 05/12/22. He had CT neck which shows a right parotid mass, heterogeneous. Recommend FNA. 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 After discussion the plan was to proceed with him being pre-treated with Factor today and then having the FNA followed by Factor in the next 12-24 hours. Here today with mom.History:Dx: Right parotid massDx2: HemophiliaLong standing history several yrs of right parotid mass, previous FNA benign (no records available)05/12/22: CT neck w/contrast +heterogeneous ill-defined mass in the right parotid which is3.5cm in size.05/19/22: FNA Rt parotidPShx: He had impacted tooth removed as a child and nasal bone fx in the past.Pmhx: hemophilia B (follows w/ Dr Morales)SH:Tob: noneETOH: noneAmish community, self-payOccupation: [employer] TU[employer]Gyxzrsnlhsdzas-Zmnsp [place] [address] Work Phone: 05-12-2022 History of Present illness Narrative Mr. SADIE OSMAN, is a 26 year old male for follow up of his right parotid mass. Last seen 05/12/22. He had CT neck which shows a right parotid mass, heterogeneous. Recommend FNA. 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 After discussion the plan was to proceed with him being pre-treated with Factor today and then having the FNA followed by Factor in the next 12-24 hours. Here today with mom.History:Dx: Right parotid massDx2: HemophiliaLong standing history several yrs of right parotid mass, previous FNA benign (no records available)05/12/22: CT neck w/contrast +heterogeneous ill-defined mass in the right parotid which is3.5cm in size.05/19/22: FNA Rt parotidPShx: He had impacted tooth removed as a child and nasal bone fx in the past.Pmhx: hemophilia B (follows w/ Dr Morales)SH:Tob: noneETOH: [facility], self-payOccupation: [employer] KO[employer]Ljfdjjhumutrji-[employer] [place] [address] Work Phone: 05-03-2022 History of Present illness Narrative Mr. SADIE OSMAN, is a 26 year old male for follow up of his right facial mass. Last seen 05/03/22. Since last visit he had CT neck scan immediately prior to his visit today. Patient has no change in symptoms from previous visit. No growth in the last 2 weeks. He has Hemophilia and saw Dr. Morales 10/17. Here today with mom. He does have Factor at home that he keeps on hand if needed for an accident.I personally reviewed CT neck w/contrast which shows a heterogeneous ill-defined mass in the right parotid which is3.5cm in size.PShx: He had impacted tooth removed as a child and nasal bone fx in the past.Pmhx: hemophilia B (follows w/ Dr Morales)I have personally reviewed PMH, PSH, FH (reviewed and not pertinent to the presenting complaint except as noted above) and SH which are provided in the attached Adult Patient Questionnaire which is scanned into the electronic medical record.SH:Tob: noneETOH: [facility], self-payOccupation: [employer]Rgfcdyhxmuioei-[employer] [place] [address] Work Phone: 05-04-2012 History of Present illness Narrative Mr. SADIE OSMAN, is a 26 year old male referred to me today by Dr. Morales for further evaluation and treatment of right facial mass. Patient states he first noticed a right facial mass about 7-10 years ago that has been progressively enlarging in size associated with more discomfort recently. Previous work up included needle biopsy by [facility] in 2016 that was reportedly benign, salivary gland in nature and no further intervention recommended at that time. Since the mass has grown and becoming sore. Otherwise denies fever chills night sweats weight loss. He reports occasional bleeding from gums which he isn't sure if this is associated with the mass growth. 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 SADIE OSMAN, is a 26 year old male for follow up of CT Scan results for the evaluation and treatment of right facial mass. Patient has no change in symptoms from previous visit. * PShx: He had impacted tooth removed as a child and nasal bone fx in the past. * Pmhx: hemophilia B (follows olga/ Dr Morales) * I have personally reviewed PMH, PSH, FH (reviewed and not pertinent to the presenting complaint except as noted above) and SH which are provided in the attached Adult Patient Questionnaire which is scanned into the electronic medical record. * SH: * Tob: none * ETOH: none * [facility], self-pay * Occupation: [employer] AD-Nleatryxhohvsv-Swhsgyl Work Phone: Chief Complaint right neck massreview CT Scanreview CT Scanfollow up FNAfollow up FNA, parotid masspost op visit Summary Purpose Family History No Family History Records FoundNo Family History Records FoundNo Family History Records FoundNo Family History Records Found Advance Directives No Advanced Directives Records FoundNo Advanced Directives Records FoundNo Advanced Directives Records FoundNo Advanced Directives Records Found Additional Source Comments (unrecognized sect ion and content) No Status Records FoundNo Status Records FoundNo Status Records FoundNo Status Records Found INFORMATION SOURCE (unrecogn ized section and content) DATE CREATED AUTHOR 06/29/2022 [employer] DATE CREATED AUTHOR AUTHOR'S ORGANIZ ATION 06/03/2023 [facility] DATE CREATED AUTHOR AUTHOR'S ORGANIZ ATION 10/21/2024 [facility] DATE CREATED AUTHOR AUTHOR'S ORGANIZ ATION 04/21/2025 [facility] Reason for Visit (unrecogniz ed section and content) Reason Comments Follow-up Follow up for paroti d mass Care Teams (unrecognized sec tion and content) Desulphurizer Operator Relationship Specialty Start Date End Date Lali Morales MD Consulting Physician Hematology and Oncology 03/12/24 FOR RECORDS PERTAINING TO PATIENTS WHO ARE OR HAVE BEEN ENROLLED IN A CHEMICAL DEPENDENCY/SUBSTANCEABUSE PROGRAM, SOME INFORMATION MAY BE OMITTED. This clinical summary was aggregated from multiple sources. Caution should be exercised in using it in the provision of clinical care. This summary normalizes information from multiple sources, and as a consequence, information in this document may materially change the coding, format and clinical context of patient data. In addition, data may be omitted in some cases. CLINICAL DECISIONS SHOULD BE BASED ON THE PRIMARY CLINICAL RECORDS. [facility] [employer] provides no warranty or guarantee of the accuracy or completeness of information in this document.
--- NOTE | 2025-04-21 23:46 | RAD_ITS ---
PROCEDURE: CHEST PA AND LATERAL 04/21/2025 REASON FOR EXAM: CHEST PAIN LEFT TECHNIQUE: CHEST PA AND LATERAL COMPARISON: No FINDINGS: Normal heart size. Well inflated lungs. No consolidation, effusion or pneumothorax. RAD/Chest PA and Lateral IMPRESSION: No acute chest findings. Reading Location: [place] [id number]
[2025-04-22 00:08] LABS: Anion Gap 14 (5-15); BUN 18 mg/dL (4-19); BUN/Creat Ratio 18.7 RATIO (10-20); Calcium,Total 9.7 mg/dL (7.6-11.0); Carbon Dioxide 23.3 mmol/L (21.0-32.0); Chloride 102 mmol/L (98-108); Estimated Creatinine Clearance 94.76 ml/min (50-250); Glucose 95 mg/dL (70-99); Potassium 3.6 mmol/L (3.3-5.1)
[2025-04-22 00:10] LABS: Pro- Brain NATRIURETIC PEPTIDE < 36 pg/mL (<=450); Troponin T High Sensitivity < 6 ng/L (<=22)
[2025-04-22 00:13] VITALS: BP 126/73; PULSE 80; RESP 18; O2SAT 98
[2025-04-22 00:14] LABS: Hematocrit 43.1 % (40-54); Hemoglobin 15.0 g/dL (13.0-16.5); Immature Granulocytes Count 0.010 X10^3/uL (0.0-0.0); Mean Corp Hgb Conc 34.8 g/dL (32-36); Mean Corpuscular Volume 88.1 fL (80-94); Mean Platelet Vol. 9.5 fl (6.2-12.0); NRBC Flagged by Analyzer 0 % (0-5); Platelet Count 195 K/mm3 (150-450); RBC Distribution Width CV 11.9 % (11.6-14.6); RBC Distribution Width SD 38.5 fl (35.1-43.9); Red Blood Count 4.89 M/mm3 (4.6-6.2); White Blood Count 6.1 K/mm3 (4.4-11.0)
[2025-04-22 00:17] LABS: D-Dimer Quantitative (DVT/PE) < 0.27 FEU/ug/m (0.27-0.49)
[2025-04-22 01:00] VITALS: BP 121/74; PULSE 58; RESP 16; O2SAT 98
[2025-04-22 01:44] LABS: Troponin T High Sens 2 HR < 6 ng/L (<=22)
[2025-04-22 02:00] VITALS: BP 116/68; PULSE 52; RESP 11; O2SAT 98
[2025-04-22 02:08] VITALS: BP 116/68; PULSE 53; RESP 10; TEMP 36.6; O2SAT 97
== END 2025-04-22 02:22 | disposition home or self-care (01) ==
PROVIDERS: Emergency Provider Emergency Medicine; PCP Family Medicine; Visit Provider Emergency Medicine
DX: R07.9 Chest pain, unspecified (principal); R09.1 Pleurisy
CPT/HCPCS: 71046; 80048; 83880; 84484; 85025; 85379; 93005; 99284; A4216